=== PATIENT | female | born 1975 | race Caucasian/White ===

== ENCOUNTER → 2021-05-01 14:43 | Outpatient (CLI) | payer OTHER, SELFPAY ==
--- NOTE | ~2021-05-01 | CT_ITS ---
EXAMINATION: CT sinus wo con DATE: 05/01/2021 15:02 INDICATION: Chronic sinusitis. Chronic congestion. TECHNIQUE: Computed tomography (CT) of the paranasal sinuses was performed without contrast. Iterativ e reconstruction technique was employed. Exam dose: 286.20 mGy-cm total exam DLP. COMPARISON: 11/22/2017 CT sinuses FINDINGS: There is minimal rightward bowing of the nasal septum. The nasal turbinates are probably swollen bilaterally. There is intralamellar cell of both middle nikia al turbinates, more prominent on the left. There is soft tissue thickening but no occlusion at the left and right maxillary ostium and infundibu lum. There is an approximately 12 x 14 mm mucus retention cyst or polyp in the posterior inferior left max illary sinus. The paranasal sinuses otherwise are normally developed and aerated. There is very limited development of the left mastoid air cells. Right mastoid air cells are normally developed and aerated. IMPRESSION: Minimal rightward bowing of nasal septum Swelling of the nasal turbinates Interlamellar cell of both middle nasal turbinates, greater on the left Mild soft tissue thickening in the region of the maxillary ostium and infundibulum bilaterally, witho ut occlusion Prominent mucus retention cyst or polyp in the posterolateral inferior left maxillary sinus Reviewed, dictated and finalized at [facility] Reviewed, dictated and finalized at [facility] [employer] [facility] IMPRESSION: Minimal rightward bowing of nasal septum Swelling of the nasal turbinates Interlamellar cell of both middle nasal turbinates, greater on the left Mild soft tissue thickening in the region of the maxillary ostium and infundibu lum bilaterally, without occlusion Prominent mucus retention cyst or polyp in the posterolateral inferior left max illary sinus
== END ==
DX: J32.9 Chronic sinusitis, unspecified (principal); R93.0 Abnormal findings on diagnostic imaging of skull and head, not elsewhere classified
CPT/HCPCS: 70486

== ENCOUNTER 2024-08-19 13:27 | Outpatient (CLI) | payer OTHER, SELFPAY ==
--- NOTE | ~2024-08-19 | MM_ITS ---
EXAMINATION: MM screening lianna BI w ross HISTORY: Screening TECHNIQUE: Craniocaudal and mediolateral oblique 3-D tomosynthesis images were obtained and synthetic 2-D images were generated. CAD analysis was submitted and interpreted. COMPARISON: No prior mammogram is available for comparison at this institution. BREAST PARENCHYMAL COMPOSITION: Not dense: There are scattered areas of fibroglandular density. FINDINGS: There is no mammographic evidence for malignancy in the right breast. There is focal asymme try with architectural distortion centered in the upper central aspect of the left breast, middle thi rd. IMPRESSION: 1. Focal left breast asymmetry with architectural distortion upper central breast, middle third. 2. Additional mammographic views and possible breast ultrasound are recommended. BI-RADS Category 0: Incomplete: Needs additional imaging evaluation. Reviewed, dictated and finalized at location A. IMPRESSION: 1. Focal left breast asymmetry with architectural distortion upper central jess[address] st, middle third. 2. Additional mammographic views and possible breast ultrasound are recommended . BI-RADS Category 0: Incomplete: Needs additional imaging evaluation.
--- OUTSIDE RECORDS SUMMARY | 2024-08-19 13:37 | XMS_ITS | Patient Health Record ---
Author Organization [facility] Address [address] [place] [address] Care Team Providers Care Front Maker Lockstitch Name Role Phone OttoMana hacketthel Unavailable [phone] Denisa Michael Unavailable [phone] Otto Tomás Unavailable [phone] Allergies No Known Allergies Reason For Referral No Information Medications Medication SIG (Take, Route, Frequency, Duration) Notes Start Date End Date Status Restasis 0.05 % INSTILL 1 DROP IN BOTH EYES TWICE DAILY Ophthalmic for 30 Days Active Vitamin D (Ergocalciferol) 1.25 MG (70650 UT) TAKE 1 CAPSULE BY MOUTH ONCE A WEEK Oral for 84 Days Active Synthroid 25 MCG 1 tablet in the morning on an empty stomach Orally Once a day for 30 day(s) 11/27/2023 Active traMADol HCl 100 MG 1 tablet Orally twic e a day for 30 days Needs PA! Thank you! 08/10/2024 Active HYDROcodone-Acetamino phen 5-325 MG 1 tablet Orally at night for 30 days 07/29/2024 Active Gabapentin 300 MG 1 capsule Orally Onc e a day Active Lexapro 5 MG 1 tablet Orally Once a day Active Omeprazole 40 MG Oral for 90 Days Active Qulipta 60 MG Oral for 30 Days Active Ibuprofen 400 MG 1 tablet with food o r milk as needed Orally Three times a day 11/27/2023 Active Aleve 220 MG 1 tablet with food o r milk as needed Orally every 12 hrs 11/27/2023 Active Tylenol 325 MG 1 tablet as needed Orally every 6 hrs 11/27/2023 Active Diclofenac Sodium 50 MG Oral for 14 Days Active Problems Problem Type SNOMED Code ICD Code Onset Dates Problem Status W/U Status Risk Notes Problem Lumbosacral plexus lesion (3703681) Lumbosacral plexus disorders (G54.1) Active confirmed Problem Spinal enthesopathy (75367408) Spinal enthesopathy, lumbar region (M46.06) Active confirmed Problem Lumbar spondylosis (788054876) Lumbar spondylosis (M47.816) Active confirmed Problem Lumbar radiculopathy (576442701) Lumbar radiculopathy (M54.16) Active confirmed Problem Scoliosis (346159094) Lumbar scoliosis (M41.9) Active confirmed Problem Hypothyroidism (05780288) Hypothyroidism (E03.9) Active confirmed Problem 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 Problem Scoliosis (354228444) Scoliosis of thoracolumbar spine (M41.9) Active confirmed Problem Congenital scoliosis (44757888) 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 Problem Gastric reflux (044805499) Gastric reflux (K21.9) Active confirmed Problem Gastroesophageal reflux disease (245439595) Gastric reflux syndrome (K21.9) Active confirmed Problem Vitamin D deficiency (94269748) Vitamin D deficiency (E55.9) Active confirmed Problem Vitamin D deficiency (70317617) Vitamin D3 deficiency (E55.9) Active confirmed Vital Signs Heart Rate 76 /min 07/28/2024 Respiratory Rate 80 /min 12/17/2023 Height-cm 175.26 cm 07/28/2024 Blood pressure diastolic 81 mm Hg 07/28/2024 Weight-kg 88.45 kg 07/28/2024 Height 5ft 9in in 07/28/2024 Blood pressure systolic 126 mm Hg 07/28/2024 Weight 195 lbs 07/28/2024 BMI 28.79 kg/m2 07/28/2024 Encounters Encounter Location Date Provider Diagnosis [facility] [address] [place] [address] [address] [place] [address] 11/27/2023 Olga Menjivar Congenital scoliosis Q67.5 ; 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 ; Shantal-Danlos syndrome Q79.60 ; Hypothyroidism E03.9 ; Gastric reflux K21.9 and Compression fx, lumbar spine S32.000A [facility] [address] [place] [address] [address] [place] [address] 12/17/2023 Olga Menjivar Lumbosacral plexus disorders G54.1 and Lumbar pain M54.50 [facility] [address] [place] [address] [address] [place] [address] 12/24/2023 Olga Otto Lumbar spondylosis M47.816 ; Low back pain M54.50 ; Spinal enthesopathy, lumbar region M46.06 and 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 [facility] [address] [place] [address] [address] [place] [address] 01/06/2024 Olga Menjivar Congenital scoliosis Q67.5 ; Lumbar vertebral fracture S32.009A ; 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 ; Vitamin D deficiency E55.9 ; Hypothyroidism E03.9 and Gastric reflux syndrome K21.9 [facility] [address] [place] [address] [address] [place] [address] 02/10/2024 Olgaminal Menjivar Lumbar radiculopathy M54.16 ; Lumbar spondylosis M47.816 and Kyphoscoliosis M41.9 [facility] [address] [place] [address] [address] [place] [address] 02/13/2024 Olga Otto Lumbar radiculopathy M54.16 [facility] [address] [place] [address] [address] [place] [address] 03/05/2024 Olga Otto Lumbar radiculopathy M54.16 ; Scoliosis of thoracolumbar spine M41.9 ; L2 vertebral fracture S32.029A ; Hypothyroidism E03.9 ; Gastric reflux syndrome K21.9 ; Lumbar spondylosis M47.816 ; Spinal enthesopathy, lumbar region M46.06 ; Lumbosacral plexus disorders G54.1 ; Congenital scoliosis Q67.5 and Vitamin D deficiency E55.9 [facility] [address] [place] [address] [address] [place] [address] 05/05/2024 Olgaminal Menjivar Lumbar spondylosis M47.816 ; Spinal enthesopathy, lumbar region M46.06 ; Lumbosacral plexus disorders G54.1 ; Congenital scoliosis Q67.5 ; Vitamin D deficiency E55.9 ; Hypothyroidism E03.9 ; Gastric reflux syndrome K21.9 ; Lumbar radiculopathy M54.16 ; Scoliosis of thoracolumbar spine M41.9 ; Pain in left lumbar region of back M54.50 ; Fracture of L3 vertebra S32.039A and Vitamin D3 deficiency E55.9 [facility] [address] [place] [address] 05/14/2024 Olga Reynoldsnberg Lumbar spondylosis M47.816 ; Spinal enthesopathy, lumbar region M46.06 ; Lumbosacral plexus disorders G54.1 ; Congenital scoliosis Q67.5 ; Vitamin D deficiency E55.9 ; Hypothyroidism E03.9 ; Gastric reflux syndrome K21.9 ; Lumbar radiculopathy M54.16 ; Scoliosis of thoracolumbar spine M41.9 ; Vitamin D3 deficiency E55.9 and Lumbar scoliosis M41.9 [facility] [address] [place] [address] 05/27/2024 Michael Crawley Lumbar spondylosis M47.816 ; Spinal enthesopathy, lumbar region M46.06 ; Lumbosacral plexus disorders G54.1 ; Congenital scoliosis Q67.5 ; Vitamin D deficiency E55.9 ; Hypothyroidism E03.9 ; Gastric reflux syndrome K21.9 ; Lumbar radiculopathy M54.16 ; Scoliosis of thoracolumbar spine M41.9 ; Vitamin D3 deficiency E55.9 and Lumbar scoliosis M41.9 [facility] [address] [place] [address] 06/17/2024 Michael Crawley Lumbar spondylosis M47.816 ; Spinal enthesopathy, lumbar region M46.06 ; Lumbosacral plexus disorders G54.1 ; Congenital scoliosis Q67.5 ; Vitamin D deficiency E55.9 ; Hypothyroidism E03.9 ; Gastric reflux syndrome K21.9 ; Lumbar radiculopathy M54.16 ; Scoliosis of thoracolumbar spine M41.9 ; Vitamin D3 deficiency E55.9 ; Lumbar scoliosis M41.9 ; Shantal-Danlos syndrome Q79.60 and Gastric reflux K21.9 [facility] [address] [place] [phone] 07/28/2024 Olga Menjivar Lumbar spondylosis M47.816 ; Spinal enthesopathy, lumbar region M46.06 ; Lumbosacral plexus disorders G54.1 ; Congenital scoliosis Q67.5 ; Vitamin D deficiency E55.9 ; Hypothyroidism E03.9 ; Gastric reflux syndrome K21.9 ; Lumbar radiculopathy M54.16 ; Scoliosis of thoracolumbar spine M41.9 ; Vitamin D3 deficiency E55.9 ; Lumbar scoliosis M41.9 ; Shantal-Danlos syndrome Q79.60 ; Gastric reflux K21.9 ; Kyphoscoliosis M41.9 ; Osteopenia M85.80 and Low back pain M54.50 [facility] [address] [place] [address] [address] [place] [address] 07/28/2024 Olga Menjivar [facility] [address] [place] [address] [address] [place] [address] 08/05/2024 Tomás Menjivar [facility] [address] [place] [address] [address] [place] [address] 08/10/2024 Toáms Menjivar [facility] [address] [place] [address] [address] [place] [address] 04/01/2024 Olga Menjivar [facility] [address] [place] [address] [address] [place] [address] 04/03/2024 Olga Menjivar [facility] [address] [place] [address] [address] [place] [address] 04/07/2024 Olga Menjivar [facility] [address] [place] [address] [address] [place] [address] 04/07/2024 Olga Menjivar [facility] [address] [place] [address] [address] [place] [address] 05/18/2024 Olga Menjivar Assessments Encounter Date Diagnosis (ICD Code) Assessment Notes Treatment Notes Treatment Clinical Notes Section Notes 11/27/2023 Congenital scoliosis (ICD-10 - Q67.5) 12/17/2023 Lumbosacral plexus disorders (ICD-10 - G54.1) 12/17/2023 Lumbar pain (ICD-10 - M54.50) 12/24/2023 Lumbar spondylosis (ICD-10 - M47.816) 12/24/2023 Low back pain (ICD-10 - M54.50) 01/06/2024 Congenital scoliosis (ICD-10 - Q67.5) 02/10/2024 Lumbar spondylosis (ICD-10 - M47.816) 02/10/2024 Lumbar radiculopathy (ICD-10 - M54.16) 02/13/2024 Lumbar radiculopathy (ICD-10 - M54.16) 03/05/2024 Lumbar radiculopathy (ICD-10 - M54.16) 05/05/2024 Lumbar spondylosis (ICD-10 - M47.816) 05/14/2024 Lumbar spondylosis (ICD-10 - M47.816) 05/27/2024 Lumbar spondylosis (ICD-10 - M47.816) After discussing the benefit and risk/complication including but not limited bleeding, infection, nerve damage, allergic reaction, spinal fluid leak, paralysis, and of the 2nd left L4/L5 medial branch nerve diagnostic block for evaluating left L5-S1 facet arthropathy /mapping RFA were discussed with the patient who verbalized understanding and agrees to proceed today , the procedure was performed without any events, patient tolerated the procedure . Patient will be followed as scheduled. There is severe pain unresponsive to at least six months of conservative medical management. (e.g., pharmacological therapy, physical therapy, exercise). -The patient has pain that is non-radicular, suggesting facet Joint origin supported by physical exam and radiographic evaluation. -No prior spinal fusion at the vertebral level being treated. -Pain is exacerbated by extension and rotation. -Clinical findings and imaging studies suggest no other obvious cause of the pain (e.g., infection, tumor, fracture) and patient has no contraindications for the procedure. -Patient will continue with active rehabilitation program, home exercise program, or functional sikh program. -Policy guidelines regarding number and frequency of the procedure are obeyed. -This patient is currently having severe, debilitating pain that necessitates urgent treatment. The patient is highly symptomatic (Tier 3a CMS guidelines). Pain symptoms are interfering with dally activity and quality of life. Treatment options are limited. This procedure was performed based on the following criteria: -The procedure Is considered minimally Invasive. -The procedure requires very limited resources to perform, including limited use of any additional PPE. -The procedure will likely prevent this patient from seeking care at the hospital emergency room or other urgent care facility. This procedure is being performed due to medical necessity and to avoid further visits to the hospital or ER. This injection is being performed after evaluation and minimization of the risk involved in order to avoid unnecessary ER visits and hospital stays as well as to minimize escalations of opiate medications. 06/17/2024 Lumbar spondylosis (ICD-10 - M47.816) After discussing the benefit and risk/complication including but not limited bleeding, infection, nerve damage, allergic reaction, spinal fluid leak, paralysis, and of left L4/L5 MBN RFA were discussed with the patient who verbalized understanding and agrees to proceed today , the procedure was performed without any events, patient tolerated the procedure . Patient will be followed as scheduled. -There is severe pain unresponsive to at least six months of conservative medical management. (e.g., pharmacological therapy, physical therapy, exercise). -The patient has pain that is non-radicular, suggesting facet Joint origin supported by physical exam and radiographic evaluation. -No prior spinal fusion at the vertebral level being treated. -Pain is exacerbated by extension and rotation. -Clinical findings and imaging studies suggest no other obvious cause of the pain (e.g., infection, tumor, fracture) and patient has no contraindications for the procedure. -Patient had 2 sets of diagnostic (with local anesthetic only) median branch nerve blocks that provided 80% of pain relief for the durations of the agent used. -Patient will continue with active rehabilitation program, home exercise program, or functional sikh program. -Policy guidelines regarding number and frequency of the procedure are obeyed. This patient is currently having severe, debilitating pain that necessitates urgent treatment. The patient is highly symptomatic (Tier 3a CMS guidelines). Pain symptoms are interfering with dally activity and quality of life. Treatment options are limited. This procedure was performed based on the following criteria: -The procedure Is considered minimally Invasive. -The procedure requires very limited resources to perform, including limited use of any additional PPE. -The procedure will likely prevent this patient from seeking care at the hospital emergency room or other urgent care facility. This procedure is being performed due to medical necessity and to avoid further visits to the hospital or ER. This injection is being performed after evaluation and minimization of the risk involved in order to avoid unnecessary ER visits and hospital stays as well as to minimize escalations of opiate medications. 07/28/2024 Lumbar spondylosis (ICD-10 - M47.816) 06/17/2024 Spinal enthesopathy, lumbar region (ICD-10 - M46.06) After discussing the benefit and risk/complication including but not limited bleeding, infection, nerve damage, allergic reaction, spinal fluid leak, paralysis, and of left L4/L5 MBN RFA were discussed with the patient who verbalized understanding and agrees to proceed today , the procedure was performed without any events, patient tolerated the procedure . Patient will be followed as scheduled. -There is severe pain unresponsive to at least six months of conservative medical management. (e.g., pharmacological therapy, physical therapy, exercise). -The patient has pain that is non-radicular, suggesting facet Joint origin supported by physical exam and radiographic evaluation. -No prior spinal fusion at the vertebral level being treated. -Pain is exacerbated by extension and rotation. -Clinical findings and imaging studies suggest no other obvious cause of the pain (e.g., infection, tumor, fracture) and patient has no contraindications for the procedure. -Patient had 2 sets of diagnostic (with local anesthetic only) median branch nerve blocks that provided 80% of pain relief for the durations of the agent used. -Patient will continue with active rehabilitation program, home exercise program, or functional sikh program. -Policy guidelines regarding number and frequency of the procedure are obeyed. This patient is currently having severe, debilitating pain that necessitates urgent treatment. The patient is highly symptomatic (Tier 3a CMS guidelines). Pain symptoms are interfering with dally activity and quality of life. Treatment options are limited. This procedure was performed based on the following criteria: -The procedure Is considered minimally Invasive. -The procedure requires very limited resources to perform, including limited use of any additional PPE. -The procedure will likely prevent this patient from seeking care at the hospital emergency room or other urgent care facility. This procedure is being performed due to medical necessity and to avoid further visits to the hospital or ER. This injection is being performed after evaluation and minimization of the risk involved in order to avoid unnecessary ER visits and hospital stays as well as to minimize escalations of opiate medications. 07/28/2024 Spinal enthesopathy, lumbar region (ICD-10 - M46.06) 05/27/2024 Spinal enthesopathy, lumbar region (ICD-10 - M46.06) After discussing the benefit and risk/complication including but not limited bleeding, infection, nerve damage, allergic reaction, spinal fluid leak, paralysis, and of the 2nd left L4/L5 medial branch nerve diagnostic block for evaluating left L5-S1 facet arthropathy /mapping RFA were discussed with the patient who verbalized understanding and agrees to proceed today , the procedure was performed without any events, patient tolerated the procedure . Patient will be followed as scheduled. There is severe pain unresponsive to at least six months of conservative medical management. (e.g., pharmacological therapy, physical therapy, exercise). -The patient has pain that is non-radicular, suggesting facet Joint origin supported by physical exam and radiographic evaluation. -No prior spinal fusion at the vertebral level being treated. -Pain is exacerbated by extension and rotation. -Clinical findings and imaging studies suggest no other obvious cause of the pain (e.g., infection, tumor, fracture) and patient has no contraindications for the procedure. -Patient will continue with active rehabilitation program, home exercise program, or functional sikh program. -Policy guidelines regarding number and frequency of the procedure are obeyed. -This patient is currently having severe, debilitating pain that necessitates urgent treatment. The patient is highly symptomatic (Tier 3a CMS guidelines). Pain symptoms are interfering with dally activity and quality of life. Treatment options are limited. This procedure was performed based on the following criteria: -The procedure Is considered minimally Invasive. -The procedure requires very limited resources to perform, including limited use of any additional PPE. -The procedure will likely prevent this patient from seeking care at the hospital emergency room or other urgent care facility. This procedure is being performed due to medical necessity and to avoid further visits to the hospital or ER. This injection is being performed after evaluation and minimization of the risk involved in order to avoid unnecessary ER visits and hospital stays as well as to minimize escalations of opiate medications. 05/14/2024 Spinal enthesopathy, lumbar region (ICD-10 - M46.06) 05/05/2024 Spinal enthesopathy, lumbar region (ICD-10 - M46.06) 03/05/2024 Scoliosis of thoracolumbar spine (ICD-10 - M41.9) 01/06/2024 Lumbar vertebral fracture (ICD-10 - S32.009A) 12/24/2023 Spinal enthesopathy, lumbar region (ICD-10 - M46.06) 11/27/2023 Hypermobility syndrome (ICD-10 - M35.7) 11/27/2023 Shantal-Danlos syndrome (ICD-10 - Q79.60) 12/24/2023 Hypermobility syndrome (ICD-10 - M35.7) 01/06/2024 Hypermobility syndrome (ICD-10 - M35.7) 03/05/2024 L2 vertebral fracture (ICD-10 - S32.029A) 05/05/2024 Lumbosacral plexus disorders (ICD-10 - G54.1) 02/10/2024 Kyphoscoliosis (ICD-10 - M41.9) 05/14/2024 Lumbosacral plexus disorders (ICD-10 - G54.1) 05/27/2024 Lumbosacral plexus disorders (ICD-10 - G54.1) After discussing the benefit and risk/complication including but not limited bleeding, infection, nerve damage, allergic reaction, spinal fluid leak, paralysis, and of the 2nd left L4/L5 medial branch nerve diagnostic block for evaluating left L5-S1 facet arthropathy /mapping RFA were discussed with the patient who verbalized understanding and agrees to proceed today , the procedure was performed without any events, patient tolerated the procedure . Patient will be followed as scheduled. There is severe pain unresponsive to at least six months of conservative medical management. (e.g., pharmacological therapy, physical therapy, exercise). -The patient has pain that is non-radicular, suggesting facet Joint origin supported by physical exam and radiographic evaluation. -No prior spinal fusion at the vertebral level being treated. -Pain is exacerbated by extension and rotation. -Clinical findings and imaging studies suggest no other obvious cause of the pain (e.g., infection, tumor, fracture) and patient has no contraindications for the procedure. -Patient will continue with active rehabilitation program, home exercise program, or functional sikh program. -Policy guidelines regarding number and frequency of the procedure are obeyed. -This patient is currently having severe, debilitating pain that necessitates urgent treatment. The patient is highly symptomatic (Tier 3a CMS guidelines). Pain symptoms are interfering with dally activity and quality of life. Treatment options are limited. This procedure was performed based on the following criteria: -The procedure Is considered minimally Invasive. -The procedure requires very limited resources to perform, including limited use of any additional PPE. -The procedure will likely prevent this patient from seeking care at the hospital emergency room or other urgent care facility. This procedure is being performed due to medical necessity and to avoid further visits to the hospital or ER. This injection is being performed after evaluation and minimization of the risk involved in order to avoid unnecessary ER visits and hospital stays as well as to minimize escalations of opiate medications. 06/17/2024 Lumbosacral plexus disorders (ICD-10 - G54.1) After discussing the benefit and risk/complication including but not limited bleeding, infection, nerve damage, allergic reaction, spinal fluid leak, paralysis, and of left L4/L5 MBN RFA were discussed with the patient who verbalized understanding and agrees to proceed today , the procedure was performed without any events, patient tolerated the procedure . Patient will be followed as scheduled. -There is severe pain unresponsive to at least six months of conservative medical management. (e.g., pharmacological therapy, physical therapy, exercise). -The patient has pain that is non-radicular, suggesting facet Joint origin supported by physical exam and radiographic evaluation. -No prior spinal fusion at the vertebral level being treated. -Pain is exacerbated by extension and rotation. -Clinical findings and imaging studies suggest no other obvious cause of the pain (e.g., infection, tumor, fracture) and patient has no contraindications for the procedure. -Patient had 2 sets of diagnostic (with local anesthetic only) median branch nerve blocks that provided 80% of pain relief for the durations of the agent used. -Patient will continue with active rehabilitation program, home exercise program, or functional sikh program. -Policy guidelines regarding number and frequency of the procedure are obeyed. This patient is currently having severe, debilitating pain that necessitates urgent treatment. The patient is highly symptomatic (Tier 3a CMS guidelines). Pain symptoms are interfering with dally activity and quality of life. Treatment options are limited. This procedure was performed based on the following criteria: -The procedure Is considered minimally Invasive. -The procedure requires very limited resources to perform, including limited use of any additional PPE. -The procedure will likely prevent this patient from seeking care at the hospital emergency room or other urgent care facility. This procedure is being performed due to medical necessity and to avoid further visits to the hospital or ER. This injection is being performed after evaluation and minimization of the risk involved in order to avoid unnecessary ER visits and hospital stays as well as to minimize escalations of opiate medications. 07/28/2024 Lumbosacral plexus disorders (ICD-10 - G54.1) 06/17/2024 Congenital scoliosis (ICD-10 - Q67.5) After discussing the benefit and risk/complication including but not limited bleeding, infection, nerve damage, allergic reaction, spinal fluid leak, paralysis, and of left L4/L5 MBN RFA were discussed with the patient who verbalized understanding and agrees to proceed today , the procedure was performed without any events, patient tolerated the procedure . Patient will be followed as scheduled. -There is severe pain unresponsive to at least six months of conservative medical management. (e.g., pharmacological therapy, physical therapy, exercise). -The patient has pain that is non-radicular, suggesting facet Joint origin supported by physical exam and radiographic evaluation. -No prior spinal fusion at the vertebral level being treated. -Pain is exacerbated by extension and rotation. -Clinical findings and imaging studies suggest no other obvious cause of the pain (e.g., infection, tumor, fracture) and patient has no contraindications for the procedure. -Patient had 2 sets of diagnostic (with local anesthetic only) median branch nerve blocks that provided 80% of pain relief for the durations of the agent used. -Patient will continue with active rehabilitation program, home exercise program, or functional sikh program. -Policy guidelines regarding number and frequency of the procedure are obeyed. This patient is currently having severe, debilitating pain that necessitates urgent treatment. The patient is highly symptomatic (Tier 3a CMS guidelines). Pain symptoms are interfering with dally activity and quality of life. Treatment options are limited. This procedure was performed based on the following criteria: -The procedure Is considered minimally Invasive. -The procedure requires very limited resources to perform, including limited use of any additional PPE. -The procedure will likely prevent this patient from seeking care at the hospital emergency room or other urgent care facility. This procedure is being performed due to medical necessity and to avoid further visits to the hospital or ER. This injection is being performed after evaluation and minimization of the risk involved in order to avoid unnecessary ER visits and hospital stays as well as to minimize escalations of opiate medications. 07/28/2024 Congenital scoliosis (ICD-10 - Q67.5) 05/27/2024 Congenital scoliosis (ICD-10 - Q67.5) After discussing the benefit and risk/complication including but not limited bleeding, infection, nerve damage, allergic reaction, spinal fluid leak, paralysis, and of the 2nd left L4/L5 medial branch nerve diagnostic block for evaluating left L5-S1 facet arthropathy /mapping RFA were discussed with the patient who verbalized understanding and agrees to proceed today , the procedure was performed without any events, patient tolerated the procedure . Patient will be followed as scheduled. There is severe pain unresponsive to at least six months of conservative medical management. (e.g., pharmacological therapy, physical therapy, exercise). -The patient has pain that is non-radicular, suggesting facet Joint origin supported by physical exam and radiographic evaluation. -No prior spinal fusion at the vertebral level being treated. -Pain is exacerbated by extension and rotation. -Clinical findings and imaging studies suggest no other obvious cause of the pain (e.g., infection, tumor, fracture) and patient has no contraindications for the procedure. -Patient will continue with active rehabilitation program, home exercise program, or functional sikh program. -Policy guidelines regarding number and frequency of the procedure are obeyed. -This patient is currently having severe, debilitating pain that necessitates urgent treatment. The patient is highly symptomatic (Tier 3a CMS guidelines). Pain symptoms are interfering with dally activity and quality of life. Treatment options are limited. This procedure was performed based on the following criteria: -The procedure Is considered minimally Invasive. -The procedure requires very limited resources to perform, including limited use of any additional PPE. -The procedure will likely prevent this patient from seeking care at the hospital emergency room or other urgent care facility. This procedure is being performed due to medical necessity and to avoid further visits to the hospital or ER. This injection is being performed after evaluation and minimization of the risk involved in order to avoid unnecessary ER visits and hospital stays as well as to minimize escalations of opiate medications. 05/14/2024 Congenital scoliosis (ICD-10 - Q67.5) 05/05/2024 Congenital scoliosis (ICD-10 - Q67.5) 03/05/2024 Hypothyroidism (ICD-10 - E03.9) 01/06/2024 Vitamin D deficiency (ICD-10 - E55.9) 11/27/2023 Hypothyroidism (ICD-10 - E03.9) 11/27/2023 Gastric reflux (ICD-10 - K21.9) 01/06/2024 Hypothyroidism (ICD-10 - E03.9) 03/05/2024 Gastric reflux syndrome (ICD-10 - K21.9) 05/05/2024 Vitamin D deficiency (ICD-10 - E55.9) 05/27/2024 Vitamin D deficiency (ICD-10 - E55.9) After discussing the benefit and risk/complication including but not limited bleeding, infection, nerve damage, allergic reaction, spinal fluid leak, paralysis, and of the 2nd left L4/L5 medial branch nerve diagnostic block for evaluating left L5-S1 facet arthropathy /mapping RFA were discussed with the patient who verbalized understanding and agrees to proceed today , the procedure was performed without any events, patient tolerated the procedure . Patient will be followed as scheduled. There is severe pain unresponsive to at least six months of conservative medical management. (e.g., pharmacological therapy, physical therapy, exercise). -The patient has pain that is non-radicular, suggesting facet Joint origin supported by physical exam and radiographic evaluation. -No prior spinal fusion at the vertebral level being treated. -Pain is exacerbated by extension and rotation. -Clinical findings and imaging studies suggest no other obvious cause of the pain (e.g., infection, tumor, fracture) and patient has no contraindications for the procedure. -Patient will continue with active rehabilitation program, home exercise program, or functional sikh program. -Policy guidelines regarding number and frequency of the procedure are obeyed. -This patient is currently having severe, debilitating pain that necessitates urgent treatment. The patient is highly symptomatic (Tier 3a CMS guidelines). Pain symptoms are interfering with dally activity and quality of life. Treatment options are limited. This procedure was performed based on the following criteria: -The procedure Is considered minimally Invasive. -The procedure requires very limited resources to perform, including limited use of any additional PPE. -The procedure will likely prevent this patient from seeking care at the hospital emergency room or other urgent care facility. This procedure is being performed due to medical necessity and to avoid further visits to the hospital or ER. This injection is being performed after evaluation and minimization of the risk involved in order to avoid unnecessary ER visits and hospital stays as well as to minimize escalations of opiate medications. 05/14/2024 Vitamin D deficiency (ICD-10 - E55.9) 07/28/2024 Vitamin D deficiency (ICD-10 - E55.9) 06/17/2024 Vitamin D deficiency (ICD-10 - E55.9) After discussing the benefit and risk/complication including but not limited bleeding, infection, nerve damage, allergic reaction, spinal fluid leak, paralysis, and of left L4/L5 MBN RFA were discussed with the patient who verbalized understanding and agrees to proceed today , the procedure was performed without any events, patient tolerated the procedure . Patient will be followed as scheduled. -There is severe pain unresponsive to at least six months of conservative medical management. (e.g., pharmacological therapy, physical therapy, exercise). -The patient has pain that is non-radicular, suggesting facet Joint origin supported by physical exam and radiographic evaluation. -No prior spinal fusion at the vertebral level being treated. -Pain is exacerbated by extension and rotation. -Clinical findings and imaging studies suggest no other obvious cause of the pain (e.g., infection, tumor, fracture) and patient has no contraindications for the procedure. -Patient had 2 sets of diagnostic (with local anesthetic only) median branch nerve blocks that provided 80% of pain relief for the durations of the agent used. -Patient will continue with active rehabilitation program, home exercise program, or functional sikh program. -Policy guidelines regarding number and frequency of the procedure are obeyed. This patient is currently having severe, debilitating pain that necessitates urgent treatment. The patient is highly symptomatic (Tier 3a CMS guidelines). Pain symptoms are interfering with dally activity and quality of life. Treatment options are limited. This procedure was performed based on the following criteria: -The procedure Is considered minimally Invasive. -The procedure requires very limited resources to perform, including limited use of any additional PPE. -The procedure will likely prevent this patient from seeking care at the hospital emergency room or other urgent care facility. This procedure is being performed due to medical necessity and to avoid further visits to the hospital or ER. This injection is being performed after evaluation and minimization of the risk involved in order to avoid unnecessary ER visits and hospital stays as well as to minimize escalations of opiate medications. 06/17/2024 Hypothyroidism (ICD-10 - E03.9) After discussing the benefit and risk/complication including but not limited bleeding, infection, nerve damage, allergic reaction, spinal fluid leak, paralysis, and of left L4/L5 MBN RFA were discussed with the patient who verbalized understanding and agrees to proceed today , the procedure was performed without any events, patient tolerated the procedure . Patient will be followed as scheduled. -There is severe pain unresponsive to at least six months of conservative medical management. (e.g., pharmacological therapy, physical therapy, exercise). -The patient has pain that is non-radicular, suggesting facet Joint origin supported by physical exam and radiographic evaluation. -No prior spinal fusion at the vertebral level being treated. -Pain is exacerbated by extension and rotation. -Clinical findings and imaging studies suggest no other obvious cause of the pain (e.g., infection, tumor, fracture) and patient has no contraindications for the procedure. -Patient had 2 sets of diagnostic (with local anesthetic only) median branch nerve blocks that provided 80% of pain relief for the durations of the agent used. -Patient will continue with active rehabilitation program, home exercise program, or functional sikh program. -Policy guidelines regarding number and frequency of the procedure are obeyed. This patient is currently having severe, debilitating pain that necessitates urgent treatment. The patient is highly symptomatic (Tier 3a CMS guidelines). Pain symptoms are interfering with dally activity and quality of life. Treatment options are limited. This procedure was performed based on the following criteria: -The procedure Is considered minimally Invasive. -The procedure requires very limited resources to perform, including limited use of any additional PPE. -The procedure will likely prevent this patient from seeking care at the hospital emergency room or other urgent care facility. This procedure is being performed due to medical necessity and to avoid further visits to the hospital or ER. This injection is being performed after evaluation and minimization of the risk involved in order to avoid unnecessary ER visits and hospital stays as well as to minimize escalations of opiate medications. 07/28/2024 Hypothyroidism (ICD-10 - E03.9) 05/27/2024 Hypothyroidism (ICD-10 - E03.9) After discussing the benefit and risk/complication including but not limited bleeding, infection, nerve damage, allergic reaction, spinal fluid leak, paralysis, and of the 2nd left L4/L5 medial branch nerve diagnostic block for evaluating left L5-S1 facet arthropathy /mapping RFA were discussed with the patient who verbalized understanding and agrees to proceed today , the procedure was performed without any events, patient tolerated the procedure . Patient will be followed as scheduled. There is severe pain unresponsive to at least six months of conservative medical management. (e.g., pharmacological therapy, physical therapy, exercise). -The patient has pain that is non-radicular, suggesting facet Joint origin supported by physical exam and radiographic evaluation. -No prior spinal fusion at the vertebral level being treated. -Pain is exacerbated by extension and rotation. -Clinical findings and imaging studies suggest no other obvious cause of the pain (e.g., infection, tumor, fracture) and patient has no contraindications for the procedure. -Patient will continue with active rehabilitation program, home exercise program, or functional sikh program. -Policy guidelines regarding number and frequency of the procedure are obeyed. -This patient is currently having severe, debilitating pain that necessitates urgent treatment. The patient is highly symptomatic (Tier 3a CMS guidelines). Pain symptoms are interfering with dally activity and quality of life. Treatment options are limited. This procedure was performed based on the following criteria: -The procedure Is considered minimally Invasive. -The procedure requires very limited resources to perform, including limited use of any additional PPE. -The procedure will likely prevent this patient from seeking care at the hospital emergency room or other urgent care facility. This procedure is being performed due to medical necessity and to avoid further visits to the hospital or ER. This injection is being performed after evaluation and minimization of the risk involved in order to avoid unnecessary ER visits and hospital stays as well as to minimize escalations of opiate medications. 05/05/2024 Hypothyroidism (ICD-10 - E03.9) 05/14/2024 Hypothyroidism (ICD-10 - E03.9) 03/05/2024 Lumbar spondylosis (ICD-10 - M47.816) 01/06/2024 Gastric reflux syndrome (ICD-10 - K21.9) 11/27/2023 Compression fx, lumbar spine (ICD-10 - S32.000A) [place] [id number] 03/05/2024 Spinal enthesopathy, lumbar region (ICD-10 - M46.06) 05/14/2024 Gastric reflux syndrome (ICD-10 - K21.9) 05/05/2024 Gastric reflux syndrome (ICD-10 - K21.9) 05/27/2024 Gastric reflux syndrome (ICD-10 - K21.9) After discussing the benefit and risk/complication including but not limited bleeding, infection, nerve damage, allergic reaction, spinal fluid leak, paralysis, and of the 2nd left L4/L5 medial branch nerve diagnostic block for evaluating left L5-S1 facet arthropathy /mapping RFA were discussed with the patient who verbalized understanding and agrees to proceed today , the procedure was performed without any events, patient tolerated the procedure . Patient will be followed as scheduled. There is severe pain unresponsive to at least six months of conservative medical management. (e.g., pharmacological therapy, physical therapy, exercise). -The patient has pain that is non-radicular, suggesting facet Joint origin supported by physical exam and radiographic evaluation. -No prior spinal fusion at the vertebral level being treated. -Pain is exacerbated by extension and rotation. -Clinical findings and imaging studies suggest no other obvious cause of the pain (e.g., infection, tumor, fracture) and patient has no contraindications for the procedure. -Patient will continue with active rehabilitation program, home exercise program, or functional sikh program. -Policy guidelines regarding number and frequency of the procedure are obeyed. -This patient is currently having severe, debilitating pain that necessitates urgent treatment. The patient is highly symptomatic (Tier 3a CMS guidelines). Pain symptoms are interfering with dally activity and quality of life. Treatment options are limited. This procedure was performed based on the following criteria: -The procedure Is considered minimally Invasive. -The procedure requires very limited resources to perform, including limited use of any additional PPE. -The procedure will likely prevent this patient from seeking care at the hospital emergency room or other urgent care facility. This procedure is being performed due to medical necessity and to avoid further visits to the hospital or ER. This injection is being performed after evaluation and minimization of the risk involved in order to avoid unnecessary ER visits and hospital stays as well as to minimize escalations of opiate medications. 06/17/2024 Gastric reflux syndrome (ICD-10 - K21.9) After discussing the benefit and risk/complication including but not limited bleeding, infection, nerve damage, allergic reaction, spinal fluid leak, paralysis, and of left L4/L5 MBN RFA were discussed with the patient who verbalized understanding and agrees to proceed today , the procedure was performed without any events, patient tolerated the procedure . Patient will be followed as scheduled. -There is severe pain unresponsive to at least six months of conservative medical management. (e.g., pharmacological therapy, physical therapy, exercise). -The patient has pain that is non-radicular, suggesting facet Joint origin supported by physical exam and radiographic evaluation. -No prior spinal fusion at the vertebral level being treated. -Pain is exacerbated by extension and rotation. -Clinical findings and imaging studies suggest no other obvious cause of the pain (e.g., infection, tumor, fracture) and patient has no contraindications for the procedure. -Patient had 2 sets of diagnostic (with local anesthetic only) median branch nerve blocks that provided 80% of pain relief for the durations of the agent used. -Patient will continue with active rehabilitation program, home exercise program, or functional sikh program. -Policy guidelines regarding number and frequency of the procedure are obeyed. This patient is currently having severe, debilitating pain that necessitates urgent treatment. The patient is highly symptomatic (Tier 3a CMS guidelines). Pain symptoms are interfering with dally activity and quality of life. Treatment options are limited. This procedure was performed based on the following criteria: -The procedure Is considered minimally Invasive. -The procedure requires very limited resources to perform, including limited use of any additional PPE. -The procedure will likely prevent this patient from seeking care at the hospital emergency room or other urgent care facility. This procedure is being performed due to medical necessity and to avoid further visits to the hospital or ER. This injection is being performed after evaluation and minimization of the risk involved in order to avoid unnecessary ER visits and hospital stays as well as to minimize escalations of opiate medications. 07/28/2024 Gastric reflux syndrome (ICD-10 - K21.9) 07/28/2024 Lumbar radiculopathy (ICD-10 - M54.16) 06/17/2024 Lumbar radiculopathy (ICD-10 - M54.16) After discussing the benefit and risk/complication including but not limited bleeding, infection, nerve damage, allergic reaction, spinal fluid leak, paralysis, and of left L4/L5 MBN RFA were discussed with the patient who verbalized understanding and agrees to proceed today , the procedure was performed without any events, patient tolerated the procedure . Patient will be followed as scheduled. -There is severe pain unresponsive to at least six months of conservative medical management. (e.g., pharmacological therapy, physical therapy, exercise). -The patient has pain that is non-radicular, suggesting facet Joint origin supported by physical exam and radiographic evaluation. -No prior spinal fusion at the vertebral level being treated. -Pain is exacerbated by extension and rotation. -Clinical findings and imaging studies suggest no other obvious cause of the pain (e.g., infection, tumor, fracture) and patient has no contraindications for the procedure. -Patient had 2 sets of diagnostic (with local anesthetic only) median branch nerve blocks that provided 80% of pain relief for the durations of the agent used. -Patient will continue with active rehabilitation program, home exercise program, or functional sikh program. -Policy guidelines regarding number and frequency of the procedure are obeyed. This patient is currently having severe, debilitating pain that necessitates urgent treatment. The patient is highly symptomatic (Tier 3a CMS guidelines). Pain symptoms are interfering with dally activity and quality of life. Treatment options are limited. This procedure was performed based on the following criteria: -The procedure Is considered minimally Invasive. -The procedure requires very limited resources to perform, including limited use of any additional PPE. -The procedure will likely prevent this patient from seeking care at the hospital emergency room or other urgent care facility. This procedure is being performed due to medical necessity and to avoid further visits to the hospital or ER. This injection is being performed after evaluation and minimization of the risk involved in order to avoid unnecessary ER visits and hospital stays as well as to minimize escalations of opiate medications. 05/27/2024 Lumbar radiculopathy (ICD-10 - M54.16) After discussing the benefit and risk/complication including but not limited bleeding, infection, nerve damage, allergic reaction, spinal fluid leak, paralysis, and of the 2nd left L4/L5 medial branch nerve diagnostic block for evaluating left L5-S1 facet arthropathy /mapping RFA were discussed with the patient who verbalized understanding and agrees to proceed today , the procedure was performed without any events, patient tolerated the procedure . Patient will be followed as scheduled. There is severe pain unresponsive to at least six months of conservative medical management. (e.g., pharmacological therapy, physical therapy, exercise). -The patient has pain that is non-radicular, suggesting facet Joint origin supported by physical exam and radiographic evaluation. -No prior spinal fusion at the vertebral level being treated. -Pain is exacerbated by extension and rotation. -Clinical findings and imaging studies suggest no other obvious cause of the pain (e.g., infection, tumor, fracture) and patient has no contraindications for the procedure. -Patient will continue with active rehabilitation program, home exercise program, or functional sikh program. -Policy guidelines regarding number and frequency of the procedure are obeyed. -This patient is currently having severe, debilitating pain that necessitates urgent treatment. The patient is highly symptomatic (Tier 3a CMS guidelines). Pain symptoms are interfering with dally activity and quality of life. Treatment options are limited. This procedure was performed based on the following criteria: -The procedure Is considered minimally Invasive. -The procedure requires very limited resources to perform, including limited use of any additional PPE. -The procedure will likely prevent this patient from seeking care at the hospital emergency room or other urgent care facility. This procedure is being performed due to medical necessity and to avoid further visits to the hospital or ER. This injection is being performed after evaluation and minimization of the risk involved in order to avoid unnecessary ER visits and hospital stays as well as to minimize escalations of opiate medications. 05/14/2024 Lumbar radiculopathy (ICD-10 - M54.16) 03/05/2024 Lumbosacral plexus disorders (ICD-10 - G54.1) 05/05/2024 Lumbar radiculopathy (ICD-10 - M54.16) 03/05/2024 Congenital scoliosis (ICD-10 - Q67.5) 05/14/2024 Scoliosis of thoracolumbar spine (ICD-10 - M41.9) 05/05/2024 Scoliosis of thoracolumbar spine (ICD-10 - M41.9) 05/27/2024 Scoliosis of thoracolumbar spine (ICD-10 - M41.9) After discussing the benefit and risk/complication including but not limited bleeding, infection, nerve damage, allergic reaction, spinal fluid leak, paralysis, and of the 2nd left L4/L5 medial branch nerve diagnostic block for evaluating left L5-S1 facet arthropathy /mapping RFA were discussed with the patient who verbalized understanding and agrees to proceed today , the procedure was performed without any events, patient tolerated the procedure . Patient will be followed as scheduled. There is severe pain unresponsive to at least six months of conservative medical management. (e.g., pharmacological therapy, physical therapy, exercise). -The patient has pain that is non-radicular, suggesting facet Joint origin supported by physical exam and radiographic evaluation. -No prior spinal fusion at the vertebral level being treated. -Pain is exacerbated by extension and rotation. -Clinical findings and imaging studies suggest no other obvious cause of the pain (e.g., infection, tumor, fracture) and patient has no contraindications for the procedure. -Patient will continue with active rehabilitation program, home exercise program, or functional sikh program. -Policy guidelines regarding number and frequency of the procedure are obeyed. -This patient is currently having severe, debilitating pain that necessitates urgent treatment. The patient is highly symptomatic (Tier 3a CMS guidelines). Pain symptoms are interfering with dally activity and quality of life. Treatment options are limited. This procedure was performed based on the following criteria: -The procedure Is considered minimally Invasive. -The procedure requires very limited resources to perform, including limited use of any additional PPE. -The procedure will likely prevent this patient from seeking care at the hospital emergency room or other urgent care facility. This procedure is being performed due to medical necessity and to avoid further visits to the hospital or ER. This injection is being performed after evaluation and minimization of the risk involved in order to avoid unnecessary ER visits and hospital stays as well as to minimize escalations of opiate medications. 06/17/2024 Scoliosis of thoracolumbar spine (ICD-10 - M41.9) After discussing the benefit and risk/complication including but not limited bleeding, infection, nerve damage, allergic reaction, spinal fluid leak, paralysis, and of left L4/L5 MBN RFA were discussed with the patient who verbalized understanding and agrees to proceed today , the procedure was performed without any events, patient tolerated the procedure . Patient will be followed as scheduled. -There is severe pain unresponsive to at least six months of conservative medical management. (e.g., pharmacological therapy, physical therapy, exercise). -The patient has pain that is non-radicular, suggesting facet Joint origin supported by physical exam and radiographic evaluation. -No prior spinal fusion at the vertebral level being treated. -Pain is exacerbated by extension and rotation. -Clinical findings and imaging studies suggest no other obvious cause of the pain (e.g., infection, tumor, fracture) and patient has no contraindications for the procedure. -Patient had 2 sets of diagnostic (with local anesthetic only) median branch nerve blocks that provided 80% of pain relief for the durations of the agent used. -Patient will continue with active rehabilitation program, home exercise program, or functional sikh program. -Policy guidelines regarding number and frequency of the procedure are obeyed. This patient is currently having severe, debilitating pain that necessitates urgent treatment. The patient is highly symptomatic (Tier 3a CMS guidelines). Pain symptoms are interfering with dally activity and quality of life. Treatment options are limited. This procedure was performed based on the following criteria: -The procedure Is considered minimally Invasive. -The procedure requires very limited resources to perform, including limited use of any additional PPE. -The procedure will likely prevent this patient from seeking care at the hospital emergency room or other urgent care facility. This procedure is being performed due to medical necessity and to avoid further visits to the hospital or ER. This injection is being performed after evaluation and minimization of the risk involved in order to avoid unnecessary ER visits and hospital stays as well as to minimize escalations of opiate medications. 07/28/2024 Scoliosis of thoracolumbar spine (ICD-10 - M41.9) 07/28/2024 Vitamin D3 deficiency (ICD-10 - E55.9) 06/17/2024 Vitamin D3 deficiency (ICD-10 - E55.9) After discussing the benefit and risk/complication including but not limited bleeding, infection, nerve damage, allergic reaction, spinal fluid leak, paralysis, and of left L4/L5 MBN RFA were discussed with the patient who verbalized understanding and agrees to proceed today , the procedure was performed without any events, patient tolerated the procedure . Patient will be followed as scheduled. -There is severe pain unresponsive to at least six months of conservative medical management. (e.g., pharmacological therapy, physical therapy, exercise). -The patient has pain that is non-radicular, suggesting facet Joint origin supported by physical exam and radiographic evaluation. -No prior spinal fusion at the vertebral level being treated. -Pain is exacerbated by extension and rotation. -Clinical findings and imaging studies suggest no other obvious cause of the pain (e.g., infection, tumor, fracture) and patient has no contraindications for the procedure. -Patient had 2 sets of diagnostic (with local anesthetic only) median branch nerve blocks that provided 80% of pain relief for the durations of the agent used. -Patient will continue with active rehabilitation program, home exercise program, or functional sikh program. -Policy guidelines regarding number and frequency of the procedure are obeyed. This patient is currently having severe, debilitating pain that necessitates urgent treatment. The patient is highly symptomatic (Tier 3a CMS guidelines). Pain symptoms are interfering with dally activity and quality of life. Treatment options are limited. This procedure was performed based on the following criteria: -The procedure Is considered minimally Invasive. -The procedure requires very limited resources to perform, including limited use of any additional PPE. -The procedure will likely prevent this patient from seeking care at the hospital emergency room or other urgent care facility. This procedure is being performed due to medical necessity and to avoid further visits to the hospital or ER. This injection is being performed after evaluation and minimization of the risk involved in order to avoid unnecessary ER visits and hospital stays as well as to minimize escalations of opiate medications. 05/14/2024 Vitamin D3 deficiency (ICD-10 - E55.9) 05/27/2024 Vitamin D3 deficiency (ICD-10 - E55.9) After discussing the benefit and risk/complication including but not limited bleeding, infection, nerve damage, allergic reaction, spinal fluid leak, paralysis, and of the 2nd left L4/L5 medial branch nerve diagnostic block for evaluating left L5-S1 facet arthropathy /mapping RFA were discussed with the patient who verbalized understanding and agrees to proceed today , the procedure was performed without any events, patient tolerated the procedure . Patient will be followed as scheduled. There is severe pain unresponsive to at least six months of conservative medical management. (e.g., pharmacological therapy, physical therapy, exercise). -The patient has pain that is non-radicular, suggesting facet Joint origin supported by physical exam and radiographic evaluation. -No prior spinal fusion at the vertebral level being treated. -Pain is exacerbated by extension and rotation. -Clinical findings and imaging studies suggest no other obvious cause of the pain (e.g., infection, tumor, fracture) and patient has no contraindications for the procedure. -Patient will continue with active rehabilitation program, home exercise program, or functional sikh program. -Policy guidelines regarding number and frequency of the procedure are obeyed. -This patient is currently having severe, debilitating pain that necessitates urgent treatment. The patient is highly symptomatic (Tier 3a CMS guidelines). Pain symptoms are interfering with dally activity and quality of life. Treatment options are limited. This procedure was performed based on the following criteria: -The procedure Is considered minimally Invasive. -The procedure requires very limited resources to perform, including limited use of any additional PPE. -The procedure will likely prevent this patient from seeking care at the hospital emergency room or other urgent care facility. This procedure is being performed due to medical necessity and to avoid further visits to the hospital or ER. This injection is being performed after evaluation and minimization of the risk involved in order to avoid unnecessary ER visits and hospital stays as well as to minimize escalations of opiate medications. 05/05/2024 Pain in left lumbar region of back (ICD-10 - M54.50) 03/05/2024 Vitamin D deficiency (ICD-10 - E55.9) 05/05/2024 Fracture of L3 vertebra (ICD-10 - S32.039A) 05/14/2024 Lumbar scoliosis (ICD-10 - M41.9) 06/17/2024 Lumbar scoliosis (ICD-10 - M41.9) After discussing the benefit and risk/complication including but not limited bleeding, infection, nerve damage, allergic reaction, spinal fluid leak, paralysis, and of left L4/L5 MBN RFA were discussed with the patient who verbalized understanding and agrees to proceed today , the procedure was performed without any events, patient tolerated the procedure . Patient will be followed as scheduled. -There is severe pain unresponsive to at least six months of conservative medical management. (e.g., pharmacological therapy, physical therapy, exercise). -The patient has pain that is non-radicular, suggesting facet Joint origin supported by physical exam and radiographic evaluation. -No prior spinal fusion at the vertebral level being treated. -Pain is exacerbated by extension and rotation. -Clinical findings and imaging studies suggest no other obvious cause of the pain (e.g., infection, tumor, fracture) and patient has no contraindications for the procedure. -Patient had 2 sets of diagnostic (with local anesthetic only) median branch nerve blocks that provided 80% of pain relief for the durations of the agent used. -Patient will continue with active rehabilitation program, home exercise program, or functional sikh program. -Policy guidelines regarding number and frequency of the procedure are obeyed. This patient is currently having severe, debilitating pain that necessitates urgent treatment. The patient is highly symptomatic (Tier 3a CMS guidelines). Pain symptoms are interfering with dally activity and quality of life. Treatment options are limited. This procedure was performed based on the following criteria: -The procedure Is considered minimally Invasive. -The procedure requires very limited resources to perform, including limited use of any additional PPE. -The procedure will likely prevent this patient from seeking care at the hospital emergency room or other urgent care facility. This procedure is being performed due to medical necessity and to avoid further visits to the hospital or ER. This injection is being performed after evaluation and minimization of the risk involved in order to avoid unnecessary ER visits and hospital stays as well as to minimize escalations of opiate medications. 05/27/2024 Lumbar scoliosis (ICD-10 - M41.9) After discussing the benefit and risk/complication including but not limited bleeding, infection, nerve damage, allergic reaction, spinal fluid leak, paralysis, and of the 2nd left L4/L5 medial branch nerve diagnostic block for evaluating left L5-S1 facet arthropathy /mapping RFA were discussed with the patient who verbalized understanding and agrees to proceed today , the procedure was performed without any events, patient tolerated the procedure . Patient will be followed as scheduled. There is severe pain unresponsive to at least six months of conservative medical management. (e.g., pharmacological therapy, physical therapy, exercise). -The patient has pain that is non-radicular, suggesting facet Joint origin supported by physical exam and radiographic evaluation. -No prior spinal fusion at the vertebral level being treated. -Pain is exacerbated by extension and rotation. -Clinical findings and imaging studies suggest no other obvious cause of the pain (e.g., infection, tumor, fracture) and patient has no contraindications for the procedure. -Patient will continue with active rehabilitation program, home exercise program, or functional sikh program. -Policy guidelines regarding number and frequency of the procedure are obeyed. -This patient is currently having severe, debilitating pain that necessitates urgent treatment. The patient is highly symptomatic (Tier 3a CMS guidelines). Pain symptoms are interfering with dally activity and quality of life. Treatment options are limited. This procedure was performed based on the following criteria: -The procedure Is considered minimally Invasive. -The procedure requires very limited resources to perform, including limited use of any additional PPE. -The procedure will likely prevent this patient from seeking care at the hospital emergency room or other urgent care facility. This procedure is being performed due to medical necessity and to avoid further visits to the hospital or ER. This injection is being performed after evaluation and minimization of the risk involved in order to avoid unnecessary ER visits and hospital stays as well as to minimize escalations of opiate medications. 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 Patient will be followed as scheduled. -There is severe pain unresponsive to at least six months of conservative medical management. (e.g., pharmacological therapy, physical therapy, exercise). -The patient has pain that is non-radicular, suggesting facet Joint origin supported by physical exam and radiographic evaluation. -No prior spinal fusion at the vertebral level being treated. -Pain is exacerbated by extension and rotation. -Clinical findings and imaging studies suggest no other obvious cause of the pain (e.g., infection, tumor, fracture) and patient has no contraindications for the procedure. -Patient had 2 sets of diagnostic (with local anesthetic only) median branch nerve blocks that provided 80% of pain relief for the durations of the agent used. -Patient will continue with active rehabilitation program, home exercise program, or functional sikh program. -Policy guidelines regarding number and frequency of the procedure are obeyed. This patient is currently having severe, debilitating pain that necessitates urgent treatment. The patient is highly symptomatic (Tier 3a CMS guidelines). Pain symptoms are interfering with dally activity and quality of life. Treatment options are limited. This procedure was performed based on the following criteria: -The procedure Is considered minimally Invasive. -The procedure requires very limited resources to perform, including limited use of any additional PPE. -The procedure will likely prevent this patient from seeking care at the hospital emergency room or other urgent care facility. This procedure is being performed due to medical necessity and to avoid further visits to the hospital or ER. This injection is being performed after evaluation and minimization of the risk involved in order to avoid unnecessary ER visits and hospital stays as well as to minimize escalations of opiate medications. 05/05/2024 Vitamin D3 deficiency (ICD-10 - E55.9) 06/17/2024 Gastric reflux (ICD-10 - K21.9) After discussing the benefit and risk/complication including but not limited bleeding, infection, nerve damage, allergic reaction, spinal fluid leak, paralysis, and of left L4/L5 MBN RFA were discussed with the patient who verbalized understanding and agrees to proceed today , the procedure was performed without any events, patient tolerated the procedure . Patient will be followed as scheduled. -There is severe pain unresponsive to at least six months of conservative medical management. (e.g., pharmacological therapy, physical therapy, exercise). -The patient has pain that is non-radicular, suggesting facet Joint origin supported by physical exam and radiographic evaluation. -No prior spinal fusion at the vertebral level being treated. -Pain is exacerbated by extension and rotation. -Clinical findings and imaging studies suggest no other obvious cause of the pain (e.g., infection, tumor, fracture) and patient has no contraindications for the procedure. -Patient had 2 sets of diagnostic (with local anesthetic only) median branch nerve blocks that provided 80% of pain relief for the durations of the agent used. -Patient will continue with active rehabilitation program, home exercise program, or functional sikh program. -Policy guidelines regarding number and frequency of the procedure are obeyed. This patient is currently having severe, debilitating pain that necessitates urgent treatment. The patient is highly symptomatic (Tier 3a CMS guidelines). Pain symptoms are interfering with dally activity and quality of life. Treatment options are limited. This procedure was performed based on the following criteria: -The procedure Is considered minimally Invasive. -The procedure requires very limited resources to perform, including limited use of any additional PPE. -The procedure will likely prevent this patient from seeking care at the hospital emergency room or other urgent care facility. This procedure is being performed due to medical necessity and to avoid further visits to the hospital or ER. This injection is being performed after evaluation and minimization of the risk involved in order to avoid unnecessary ER visits and hospital stays as well as to minimize escalations of opiate medications. 07/28/2024 Gastric reflux (ICD-10 - K21.9) 07/28/2024 Kyphoscoliosis (ICD-10 - M41.9) 07/28/2024 Osteopenia (ICD-10 - M85.80) 07/28/2024 Low back pain (ICD-10 - M54.50) 12/17/2023 Other Body Mass Index: Care Instructions material was published, Body Mass Index: Care Instructions material was published 12/24/2023 Other Body Mass Index: Care Instructions material was published, High Blood Pressure: Care Instructions material was published 01/06/2024 Other Body Mass Index: Care Instructions material was published 02/10/2024 Other Body Mass Index: Care Instructions material was published 03/05/2024 Other High Blood Pressure: Care Instructions material was published 05/05/2024 Other Body Mass Index: Care Instructions material was published, High Blood Pressure: Care Instructions material was published 05/14/2024 Other Body Mass Index: Care Instructions material was published 05/27/2024 Other Body Mass Index: Care Instructions material was published, High Blood Pressure: Care Instructions material was published After discussing the benefit and risk/complication including but not limited bleeding, infection, nerve damage, allergic reaction, spinal fluid leak, paralysis, and of the 2nd left L4/L5 medial branch nerve diagnostic block for evaluating left L5-S1 facet arthropathy /mapping RFA were discussed with the patient who verbalized understanding and agrees to proceed today , the procedure was performed without any events, patient tolerated the procedure . Patient will be followed as scheduled. There is severe pain unresponsive to at least six months of conservative medical management. (e.g., pharmacological therapy, physical therapy, exercise). -The patient has pain that is non-radicular, suggesting facet Joint origin supported by physical exam and radiographic evaluation. -No prior spinal fusion at the vertebral level being treated. -Pain is exacerbated by extension and rotation. -Clinical findings and imaging studies suggest no other obvious cause of the pain (e.g., infection, tumor, fracture) and patient has no contraindications for the procedure. -Patient will continue with active rehabilitation program, home exercise program, or functional sikh program. -Policy guidelines regarding number and frequency of the procedure are obeyed. -This patient is currently having severe, debilitating pain that necessitates urgent treatment. The patient is highly symptomatic (Tier 3a CMS guidelines). Pain symptoms are interfering with dally activity and quality of life. Treatment options are limited. This procedure was performed based on the following criteria: -The procedure Is considered minimally Invasive. -The procedure requires very limited resources to perform, including limited use of any additional PPE. -The procedure will likely prevent this patient from seeking care at the hospital emergency room or other urgent care facility. This procedure is being performed due to medical necessity and to avoid further visits to the hospital or ER. This injection is being performed after evaluation and minimization of the risk involved in order to avoid unnecessary ER visits and hospital stays as well as to minimize escalations of opiate medications. 06/17/2024 Other Body Mass Index: Care Instructions material was published, High Blood Pressure: Care Instructions material was published After discussing the benefit and risk/complication including but not limited bleeding, infection, nerve damage, allergic reaction, spinal fluid leak, paralysis, and of left L4/L5 MBN RFA were discussed with the patient who verbalized understanding and agrees to proceed today , the procedure was performed without any events, patient tolerated the procedure . Patient will be followed as scheduled. -There is severe pain unresponsive to at least six months of conservative medical management. (e.g., pharmacological therapy, physical therapy, exercise). -The patient has pain that is non-radicular, suggesting facet Joint origin supported by physical exam and radiographic evaluation. -No prior spinal fusion at the vertebral level being treated. -Pain is exacerbated by extension and rotation. -Clinical findings and imaging studies suggest no other obvious cause of the pain (e.g., infection, tumor, fracture) and patient has no contraindications for the procedure. -Patient had 2 sets of diagnostic (with local anesthetic only) median branch nerve blocks that provided 80% of pain relief for the durations of the agent used. -Patient will continue with active rehabilitation program, home exercise program, or functional sikh program. -Policy guidelines regarding number and frequency of the procedure are obeyed. This patient is currently having severe, debilitating pain that necessitates urgent treatment. The patient is highly symptomatic (Tier 3a CMS guidelines). Pain symptoms are interfering with dally activity and quality of life. Treatment options are limited. This procedure was performed based on the following criteria: -The procedure Is considered minimally Invasive. -The procedure requires very limited resources to perform, including limited use of any additional PPE. -The procedure will likely prevent this patient from seeking care at the hospital emergency room or other urgent care facility. This procedure is being performed due to medical necessity and to avoid further visits to the hospital or ER. This injection is being performed after evaluation and minimization of the risk involved in order to avoid unnecessary ER visits and hospital stays as well as to minimize escalations of opiate medications. 07/28/2024 Other Learning About How to Have a Healthy Back material was published Plan Of Treatment Pending Test Test Name Order Date X ray : Spines, lumbar 2 views 4 Insurance Providers Payer Name Payer Address Payer Phone Subscriber Number Group Number Insured Name Patient Relationship to Insured Coverage Start Date Coverage End Date [facility] [address] [place] [address] [id number] Norma Pruett Self - patient is the insured Medications Administered Medication Instructions Date of Administration Dosage Notes Lumb / Sacro Para-Med Branch 1st Level 12/24/2023 LEFT L2,3,4 MBN B Lumb / Sacro Para-Med Branch 1st Level 05/14/2024 LEFT L4,5 MBNB Lumb / Sacro Para-Med Branch 1st Level 05/27/2024 LEFT L4,5 MBNB #2 Lumb / Sacro Para-Med Branch 2nd Level 12/24/2023 LEFT L2,3,4 MBN B Lumb / Sacro Transfor Epidural 1st Level 02/13/2024 LEFT L4-5 TRA NS Lumbar Radiofreq Ablation 1st Level 06/17/2024 LEFT L4,5 MBN B RFA Psoas Injection 12/17/2023 LEFT PSOA S Medical (General) History Surgical History Surgery Date(Month/Year) bilateral partial knee replacement gall bladder removed
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
--- OUTSIDE RECORDS SUMMARY | 2024-08-19 13:37 | XMS_ITS | Clinical Summary ---
Author Organization [facility] Address [address] [place] [address] Care Team Providers Care Safety Physician Name Role Phone Unavailable Primary Care Provider Unavailabl e Encounters Date Type Department Care Team Description 08/13/2024 External Device Data [facility] ABSTRACTION Provider, Abstract 08/12/2024 External Device Data [facility]CTION Provider, Abstract 08/11/2024 External Device Data [facility]STRACTION Provider, Abstract 07/07/2024 External Device Data [facility] ABSTRACTION Provider, Abstract 06/10/2024 External Device Data [facility] ABSTRACTION Provider, Abstract 06/02/2024 External Device Data [facility] ABSTRACTION Provider, Abstract 06/02/2024 External Device Data [facility] ABSTRACTION Provider, Abstract 05/30/2024 External Device Data [facility] ABSTRACTION Provider, Abstract 05/29/2024 External Device Data [facility] ABSTRACTION Provider, Abstract 05/26/2024 External Device Data [facility] ABSTRACTION Provider, Abstract from Last 3 Months Social History Tobacco Use Types Packs/Day Years Used Date Smoking Tobacco: Never Assessed Comments Unknown Sex and Gender Information Value Date Recorded Sex Assigned at Not on file Legal 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 Gender Identity Not on file Sexual Orientation Not on file Plan of Treatment Health Maintenance Due Date Last Done Comments DTAP/TDAP/TD VACCINES (1 - Tdap) 1993 HEPATITIS B VACCINES (1 of 3 - 19+ 3-dose series) 1993 04/02/2019 HPV/Cotest (21-29) 1995 CERVICAL CANCER SCREENING 01/24/2004 HPV/Cotest (30-65) 01/24/2004 PAP SMEAR 01/24/2004 BREAST CANCER SCREENING 2014 FIT-DNA Q 3 years 2019 FIT/FOBT Q 1 year 2019 Flex Sig/CT Colonography Q 5 years 2019 INFLUENZA VACCINE (#1) 2023 ZOSTER VACCINE (1 of 2) 01/24/2024 COLORECTAL SCREENING 07/19/2031 07/18/2021, 07/19/19 Colorectal Cancer Screening 07/19/2031 Insurance [employer]
--- OUTSIDE RECORDS SUMMARY | 2024-08-19 13:37 | XMS_ITS | Clinical Summary ---
Author Organization [facility] Address [address] [place] [address] Care Team Providers Care Windscreen Fitter Name Role Phone Yamileth Cesia DPT Unavailable Nathalie Majano BOWLING BALL FINISHER Primary Care Provider Jane Blair MD Unavailable [phone] Chaz Szymanski MD Unavailable [phone] Misha Ledezma MD Unavailable [phone] Allergies No known active allergies Medications levothyroxine (SYNTHROID) 88 mcg tablet take 1 tablet (88MCG) by oral route every day 0 1 Active levothyroxine (SYNTHROID, LEVOTHROID) 125 mcg tablet 8 Active levonorgestreL (Mirena) IUD Mirena 20 mcg/24 hours (6 yrs) 52 mg intrauterine device Take 1 device by intrauterine route. Active cycloSPORINE (RESTASIS) 0.05 % ophthalmic emulsion 1 drop 2 (two) times a day Active prednisoLONE acetate (PRED FORTE) 1 % ophthalmic suspension 1 drop nightly 2 Active ergocalciferol (VITAMIN D) 50,000 unit capsule Take 1 capsule (50,000 Units total) by mouth once a week 2 Active Ubrelvy 100 mg tablet 1 tablet (100 mg total) 3 Active linaCLOtide (LINZESS) 72 mcg capsuleIndicatio ns:Irritable bowel syndrome with both constipation and diarrhea Take 1 capsule (72 mcg total) by mouth daily 90 capsule 4 Active Additional Information Patient not taking.Reported on 06/20/2023 amitriptyline (ELAVIL) 25 mg tablet Take 1 tablet (25 mg total) by mouth nightly 4 Active rosuvastatin (CRESTOR) 10 mg tablet Take 1 tablet (10 mg total) by mouth daily 90 tablet [address] (VOLTAREN) 50 mg EC tabletIndication s:Osteoarthritis Take 1 tablet (50 mg total) by mouth 2 (two) times a day for 14 days 28 tablet 5 Active omeprazole (PriLOSEC) 40 mg capsuleIndicatio ns:Gastroesophag eal reflux disease with esophagitis without hemorrhage TAKE 1 CAPSULE DAILY 90 capsule 5 Active Active Problems Problem Noted Date Diagnosed Date Sleep disturbance 06/20/2023 Medication overuse headache 11/19/2022 Migraine without aura 11/19/2022 Autoimmune disease 04/03/2022 Overview (04/03/2022): Phreesia 01/24/2022 Contusion of lower back 04/03/2022 Degeneration of lumbar intervertebral disc 04/03 Fear of injections and transfusions 04/03/2022 Late effect of fracture of s pine and trunk without spinal cord lesion 04/03/2022 Low back pain 04/03/2022 Assessment & Plan (06/20/2023 2:55 PM CDT): Discussed patient's scoliosis and compression fracture. Discussed pain management and following up with spinal surgeon. Lumbosacral spondylosis without myelopathy 04/03 Osteoarthritis of knee 04/03/2022 Pathological fracture 04/03/2022 Scoliosis 04/03/2022 Sacroiliitis, not elsewhere classified 3 Lumbar radiculopathy 04/03/2022 Adolescent idiopathic scoliosis of thoracolumbar region 02/07/2022 Dysphagia 06/02/2021 Overview (06/02/2021): Added automatically from request for surgery [id number] Irritable bowel syndrome with constipation 06/13 Assessment & Plan (06/13/2017 1:47 PM CDT): 1. Trial of Linzess 145 mcg daily. Instructed patient to call office in 1 week regarding symptoms. If no significant diarrhea but marginal improvement, consider escalating to 290 mcg daily. Pain of foot 01/28/2017 Gastroesophageal reflux disease without esophagi tis 09/28/2016 Assessment & Plan (06/13/2017 1:46 PM CDT): 1. Continue pantoprazole 20 mg once daily. 2. Mg, B12, BUN, creatinine every 6 months. Assessment & Plan (09/28/2016 9:23 PM CDT): 1. Trial of ranitidine 150 mg daily to b.i.d. Discontinue pantoprazole. Call office if breakthrough symptoms on H2 tejinder monotherapy. 2. B12 every 6 months on H2 tejinder monotherapy; otherwise, Mg, B12, BUN, creatinine if on PPI therapy. Bloating 09/28/2016 Assessment & Plan (09/28/2016 9:25 PM CDT): 1. Suspect functional. Consider dietitian referral for low FODMAP elimination diet. Medication treatment options include antispasmodic or TCA, or alternatively, Linzess if constipation predominant. 2. We will request most recent pelvic ultrasound. Colon cancer screening 09/28/2016 Assessment & Plan (06/13/2017 1:45 PM CDT): 1. Patient will confirm if mother has history of colon polyps. If so, repeat colonoscopy currently; otherwise, screening colonoscopy due 10/2020. Assessment & Plan (09/28/2016 9:26 PM CDT): 1. We will follow up regarding maternal history of colon polyps to determine screening colonoscopy. 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 Encounters Date Type Department Care Team Description 08/14/2024 3:00 PM CDT Office Visit [facility] Pain Management [address] [place] [address] Lucy Hamilton, PhD Other chronic pain (Primary Dx); Generalized anxiety disorder 06/26/2024 1:50 PM CDT Clinical Support [facility] Bone Health [address] [place] [address] [facility] 5th [place] [address] [place] [address] Postmenopausal (Primary Dx); Age-related osteoporosis without current pathological fracture; Osteopenia of multiple sites 06/16/2024 Orders Only [facility] Orthopaedic Surgery [address] [place] [address] [place] [address] [place] [address] Anil Campbell MD 06/15/2024 Telephone [facility] Orthopaedic Surgery [address] [place] [address] [facility] 6th [place] [address] [place] [address] Anil Campbell MD 06/15/2024 Orders Only [facility] Orthopaedic Surgery [address] [place] [address] [place] [address] [place] [address] Anil Campbell MD Age-related osteoporosis without current pathological fracture (Primary Dx) 06/10/2024 7:09 PM CDT - 06/10/2024 11:59 PM CDT Hospital Encounter [facility] [address] [place] [address] Discharge Disposition: Discharge to home or self care 06/10/2024 7:08 PM CDT - 06/10/2024 11:59 PM CDT Hospital Encounter [facility] ([facility]) [address] [place] [address] Discharge Disposition: Discharge to home or self care 06/10/2024 2:30 PM CDT Office Visit [facility] Orthopaedic Surgery [address] [place] [address] [facility] 6th [place] [address] [place] [address] Anil Campbell MD Idiopathic scoliosis in adult patient (Primary Dx); Lumbar radiculopathy 06/10/2024 1:34 PM CDT - 06/10/2024 11:59 PM CDT Hospital Encounter [facility] [address] [place] [address] Idiopathic scoliosis in adult patient Discharge Disposition: Discharge to home or self care from Last 3 Months Immunizations Immunization Administration Dates Next Due Hep B Vaccine 04/02/2019 Influenza, Unspecified 03/25/2023(Deferr ed: Patient Refused),03/25/2022(Deferred: Patient Refused) Surgical History Surgery Date Site/Laterality Comments KNEE ARTHROPLASTY 03/25/2015 - 03/24/2016 Bilateral CHOLECYSTECTOMY COLONOSCOPY UPPER GASTROINTESTINAL ENDOSCOPY MOHS SURGERY [facility] Medical History Medical History Date Comments GERD (gastroesophageal reflux disease) Plantar fasciitis Scoliosis Dry eye Shaniqua's disease IBS (irritable bowel syndrome) Scoliosis Migraines Hiatal hernia Hypercholesteremia Pneumonia Raynaud phenomenon Family History Medical History Relation Name Comments Other Father Colon cancer Maternal Grandfather Stroke Maternal Grandfather Myasthenia gravis Mother Thyroid disease Other 1 Family histo ry of Thyroid disorder; Other Other 2 Celiac disease; Other Other 3 No family histo ry of Colon polyps; Other Other 4 No family histo ry of Crohn's disease; Other Other 5 No family histo ry of Ulcerative colitis; Breast cancer Paternal Grandmother Relation Name Status Comments Father Maternal Grandfather Mother Alive Other 1 Other 2 Other 3 Other 4 Other 5 Paternal Grandfather Paternal Grandmother Social History Tobacco Use Types Packs/Day Years Used Date Smoking Tobacco: Never Smokeless Tobacco: Never Tobacco Cessation:Counseling Given: Not Answered Alcohol Use Standard Drinks/Week Comments Yes 0 (1 standard drink = 0.6 oz pur e alcohol) Socially AUDIT-C Answer Date Recorded Q1: How often do you have a drink containing alc ohol? 2-3 times a week 11/19/2022 Q2: How many drinks containi ng alcohol do you have on a typical day when you are drinking? 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 on file Not on file Not on zeynep e Obstetrics History Last Filed Vital Signs Vital Sign Reading Time Taken Comments Blood Pressure 108/72 04/10/2023 8: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 Pulse 94 04/10/2023 8: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 Temperature 36.2 C (97.2 F) 04/10/2023 8: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 Respiratory Rate 27 07/18/2021 11:40 AM CDT Oxygen Saturation 100% 07/18/2021 11:40 AM CDT Inhaled Oxygen Concentration - - Weight 89.8 kg (198 lb) 06/10/2024 2:24 PM CDT Height 172.7 cm (5' 8) 06/10/2024 2:24 PM CDT Body Mass Index 30.11 06/10/2024 2:24 PM CDT Plan of Treatment Health Maintenance Due Date Last Done Comments Breast Cancer Screening-Mammogram 1975 Cervical Cancer Screening 1975 DTaP/Tdap/Td Vaccine (1 - Tdap) 1985 Regular Well Visit/Exam 18-64 01/24/1992 Covid-19 Vaccine (3 - season) 2023 08/15/2021, 07/25/2021 Zoster Vaccine (1 of 2) 01/24/2024 Depression Screening 06/19/2024 06/20/2023 Colon Cancer Screening-Colonoscopy 07/18/2024 07/18/2021 Influenza Vaccine (Season Ended) 2024 Hepatitis B Screening Completed 04/02/2019 , 12/16/1995, 07/08/1995, Additional history exists Hepatitis C Screening Completed 07/05/2023 Pneumococcal vaccine <65 Aged Out No longer eligible based on patient's age to complete this topic Procedures Procedure Name Priority Date/Time Associated Diagnosis Comments DEXA AXIAL SKELETON BONE DENSITY 1 OR MORE SITES Schedule Routine, Read Routine (OP Routine) 06/26/2024 2:16 PM CDT Age-related osteoporosis without current pathological fracture NEURO MR OUTSIDE REFERENCE Routine 06/10/2024 7:09 PM CDT NEURO MR OUTSIDE REFERENCE Routine 06/10/2024 7:08 PM CDT XR SCOLIOSIS 4 OR 5 VW Schedule Routine, Read Routine (OP Routine) 06/10/2024 1:59 PM CDT Idiopathic scoliosis in adult patient HEPATITIS C ANTIBODY Routine 07/05/2023 8:14 AM CDT Encounter for hepatitis C screening test for low risk patient COLONOSCOPY 07/18/2021 10:47 AM CDT from Last 3 Months or Most Recently Relevant to Health Maintenance Results * DEXA Axial Skeleton Bone Density Multi Site (06/26/2024 2:16 PM CDT) Anatomical Region Laterality Modality Body N/A Radiographic Adwoa ging Narrative 06/28/2024 7:03 PM CDT Patient Name: Jericho Cartwright Date of : 1975 Date of scan: 06/26/2024 Bone mineral density was performed on a [employer] Discovery Densitometer. Based on machine cross-calibration and precision studies the least significant changes of this densitometer is 0.024 g/cm2 at the spine, 0.020 g/cm2 at the total proximal femur, and 0.014g/cm2 at the forearm. HISTORY: This is a 49 y.o. postmenopausal female with a history of thyroid disease and vitamin D deficiency. She reports that she has never smoked. She has never used smokeless tobacco. Currently on treatment with vitamin D and thyroid hormone and current complaint of back pain. INDICATIONS: History of prior vertebral fracture and vitamin D deficiency. FINDINGS: BONE MINERAL DENSITY OF THE LUMBAR SPINE Bone Mineral Density (BMD) of the lumbar spine was measured from L1, L3, and L4 and the average density was calculated to be 0.899 gm/cm2. This corresponds to a T-score (standard deviations from the mean of young adults) of -1.4. When compared to the previous study of 02/08/2022 there has been a -0.091 gm/cm (-9.2%) decrease in bone density that is considered significant. BONE MINERAL DENSITY OF THE PROXIMAL FEMUR Bone Mineral Density (BMD) of the left hip total was found to be 0.758 gm/cm2. This corresponds to a T-score standard deviations from the mean of young adults of -1.5. Femoral neck is 0.589 gm/cm2 with a T-score (standard deviations from the mean of young adults) of -2.3. When compared to the previous study of 02/08/2022 there has been a -0.055 gm/cm (-6.7%) decrease in bone density that is considered significant. BONE MINERAL DENSITY OF THE FOREARM Bone Mineral density (BMD) of the left proximal 1/3 of the radius measures 0.679 gm/cm2. This corresponds to a T-score (standard deviations from the mean of young adults) of -0.3. There is no previous study available for comparison. A forearm bone density study was performed in addition to the routine study due to future spine surgery. SUMMARY: Bone mineral density shows evidence of low bone mass at the lumbar spine and proximal femur and moderately increased fracture risk (Osteopenia). There has been a significant decrease in bone density since previous measurement. L2 excluded from bone mineral density analysis of the lumbar spine due to history of compression deformity. ADDITIONAL COMMENTS: Postmenopausal Women and Men Over 50: Diagnostic criteria: Osteoporosis: BMD at or below -2.5 T-score; Osteopenia (low bone mass): BMD between -1.0 and -2.5 T-score. If the patient has a history of a fragility fracture, a fracture that occurred with trauma equivalent to a fall from a standing position or less, then the diagnosis is osteoporosis regardless of bone density. The history and data sections of the bone mineral density scan were prepared by Sheba Norris) KALA who is accredited by the International Society of Clinical Densitometry. The overall patient assessment and scan interpretation were performed by Paul Bardales M.D. who is certified by the International Society of Clinical Densitometry. [id number] Anil Campbell MD IMG DXA PROCEDURES Final Result * Neuro MR Outside Reference (06/10/2024 7:09 PM CDT) Impressions [facility] - 06/10/2024 7:09 PM CDT These images are for Reference purposes only and have not been reviewed by [facility] Radiology. There will be no report generated by a [facility] Radiologist. Narrative [facility]YSON[facility] - 06/10/2024 7:09 PM CDT EXAMINATION: Images For Reference Purposes Only Anil Campbell MD IM MRI PROCEDURES Final Result Performing Organization Address [facility] de Phone Number [email or web address] * Neuro MR Outside Reference (06/10/2024 7:08 PM CDT) Impressions TEMITOPE_[facility] - 06/10/2024 7:08 PM CDT These images are for Reference purposes only and have not been reviewed by [facility] Radiology. There will be no report generated by a [facility] Radiologist. Narrative GAMAL_GREYSON_[facility] - 06/10/2024 7:08 PM CDT EXAMINATION: Images For Reference Purposes Only Anil Campbell MD [facility] MRI PROCEDURES Final Result Performing Organization Address [facility] de Phone Number [email or web address] * XR Scoliosis 4 or 5 Views (06/10/2024 1:59 PM CDT) Anatomical Region Laterality Modality Spine N/A Computed Radiogr aphy 06/10/2024 2:52 PM CDT Impressions 06/10/2024 3:23 PM CDT 1. Unchanged moderate levorotatory thoracolumbar scoliosis with moderate thoracic dextroscoliosis which improves on supine radiographs. 2. Unchanged mild compression fracture of L2. Dictated by: Ernestina Stanley MD The radiology attending physician has personally reviewed this study, and had reviewed and/or edited this written report and agrees with it. Electronically signed by: Hero Markham D.O. Narrative 06/10/2024 3:23 PM CDT EXAMINATION: XR SCOLIOSIS 4 OR 5 VW HISTORY: Scoliosis FINDINGS: The current study is compared with the prior radiograph dated 11/19/2022. Moderate rotatory lumbar levoscoliosis with moderate thoracic dextroscoliosis which improves on supine radiographs. No pelvic obliquity. No coronal or sagittal imbalance. Unchanged mild L2 compression fracture. Cholecystectomy clips right upper quadrant. Intrauterine device present. Bilateral unicompartmental patellofemoral compartment knee arthroplasties. Procedure Note Hero Markham, DO - 06/10/2024 EXAMINATION: XR SCOLIOSIS 4 OR 5 VW HISTORY: Scoliosis FINDINGS: The current study is compared with the prior radiograph dated 11/19/2022. Moderate rotatory lumbar levoscoliosis with moderate thoracic dextroscoliosis which improves on supine radiographs. No pelvic obliquity. No coronal or sagittal imbalance. Unchanged mild L2 compression fracture. Cholecystectomy clips right upper quadrant. Intrauterine device present. Bilateral unicompartmental patellofemoral compartment knee arthroplasties. IMPRESSION: 1. Unchanged moderate levorotatory thoracolumbar scoliosis with moderate thoracic dextroscoliosis which improves on supine radiographs. 2. Unchanged mild compression fracture of L2. Dictated by: Ernestina Stanley MD The radiology attending physician has personally reviewed this study, and had reviewed and/or edited this written report and agrees with it. Electronically signed by: Hero Markham D.O. Anil Campbell MD IMG XR PROCEDURES Final Result * Hepatitis C antibody Blood (07/05/2023 8:14 AM CDT) Hep C Ab Nonreactive Nonreactive Comment: Interpretive Data Nonreactive: Antibodies to HCV not detected. Does NOT exclude the possibility of recent exposure to HCV. Equivocal: Equivocal for HCV antibodies. Supplemental molecular testing will be automatically performed to determine infection status in accordance with current CDC screening recommendations. Reactive: Positive for HCV antibodies. This may represent current or past HCV infection. Supplemental molecular testing will be automatically performed to determine current infection status in accordance with current CDC screening recommendations. Interpretive data was last revised on 2019. Blood 07/05/2023 8:14 AM CDT 07/05/2023 3:49 PM CDT Nathalie Majano NP LAB MICROBIOLOGY - GENERAL ORDER JACQUELINE Final Result [facility] [address] [facility] Department [place] [address] * COLONOSCOPY (07/18/2021 10:47 AM CDT) Anatomical Region Laterality Modality Other Narrative Procedure Note Jane Blair MD - 07/18/2021 10:47 AM CDT ENDOSCOPY LAB Patient Name: Jericho Cartwright Procedure Date: 07/18/2021 10:47 AM Date of : 1975 Admit Type: Outpatient Age: 46 Gender: Female Attending MD: Jane Blair M.D. Room: [facility] ENDOSCOPY ROOM 03 Note Status: Finalized Procedure: Colonoscopy Indications: Screening for colorectal malignant neoplasm (last colonoscopy was > 10 years ago), Incidental changein bowel habits noted with alternating bowel habits Providers: Jane Blair M.D. Referring MD: Jane Blair M.D. Medicines: Monitored Anesthesia Care Complications: No immediate complications. Estimated Blood Loss: Estimated blood loss was minimal. Procedure: Pre-Anesthesia Assessment: - Prior to the procedure, a History and Physicalwas performed, and patient medications, allergies and sensitivities were reviewed. The patient'stolerance of previous anesthesia was reviewed. The benefits, risks and alternatives of theprocedure and sedation were discussed and informed consentwas obtained. All questions were answered. Please referto the signed informed consent document in the medical record. The scope was passed under direct vision.The [id number] was introduced through the anusand advanced to the terminal ileum, with identificationof the appendiceal orifice and IC valve. Thecolonoscopy was performed without difficulty. The patient tolerated the procedure well. The quality of thebowel preparation was evaluated using the BBPS (BostonBowel Preparation Scale) with scores of: Right Colon = 3, Transverse Colon = 3 and Left Colon = 3 (entiremucosa seen well with no residual staining, smallfragments of stool or opaque liquid). The total BBPS score equals 9. Simethicone was used. The bowelpreparation used was GoLYTELY via split dose instruction. Findings: The perianal and digital rectal examinations were normal. The terminal ileum appeared normal. A 3 mm polyp was found in the cecum. The polyp was carpet-like. The polyp was removed with a cold snare. Resection and retrieval were complete. A 4 mm polyp was found in the transverse colon. The polyp wassessile. The polyp was removed with a cold snare. Resection and retrieval were complete. An 11 mm polyp was found at 10 cm proximal to the anus. The polyp was semi-pedunculated. The polyp was removed with a hot snare. Resectionand retrieval were complete. Normal mucosa was found in the entire colon. Biopsies were taken witha cold forceps for histology. Hemorrhoids were found during retroflexion. The exam was otherwise without abnormality on direct and retroflexion views. Impression: - The examined portion of the ileum was normal. - One 3 mm polyp in the cecum, removed with a cold snare. Resected and retrieved. - One 4 mm polyp in the transverse colon, removedwith a cold snare. Resected and retrieved. - One 11 mm polyp at 10 cm proximal to the anus, removed with a hot snare. Resected and retrieved. - Normal mucosa in the entire examined colon.Biopsied. - Hemorrhoids. - The examination was otherwise normal on directand retroflexion views. Recommendation: - The patient will be observed post-procedure,until all discharge criteria are met. - Await pathology results. - Repeat colonoscopy in 3 years for surveillancebased on pathology results. - Biopsy results are typically available within 7-10 days and you will be contacted with the results. If you have not recieved your results within this timeframe, please call [phone] regarding your results. - Contact Information: During normal business hours - Please call theNurse Coordinator: [phone] After hours, evening, nights, weekends and holidays- Please call the hospital grinding wheel operator at and ask for the GI fellow admissions gate attendant. - . Attending Participation: I personally performed the entire procedure. Electronically Signed By: Jane Blair M.D. Jane Blair M.D. 07/18/2021 11:23:34 AM Number of Addenda: 0 Note Initiated On: 07/18/2021 10:47 AM Jane Blair MD ENDOSCOPY PROCEDURES Fin al Result from Last 3 Months or Most Recently Relevant to Health Maintenance Insurance [facility] [employer] Advance Directives For more information, please contact: [phone] * Full Code (Latest Code Status on File) Date Activated Date Inactivated Comments 07/18/2021 9:28 AM 07/18/2021 4:06 PM Care Teams Windscreen Fitter Relationship Specialty Start Date End Date Nathalie Majano NP [address] [facility] [address] [place] [address] PCP - General Family Medicine 06/20/23 Cesia Carson DPT [address] [place] [address] Physical Therapist Physical Therapy 11/21/22 Jane Blair MD [address] [place] [address] Referring Physician Gastroenterology 06/20/23 Chaz Szymanski MD [address] [place] [address] Referring Physician Endocrinology Diabetes & Metabolism 06/20/23 Misha Ledezma MD [address] [place] [address] Referring Physician Obstetrics and Gynecology 06/20/23 [facility] Nurse Practitioner 06/20/23
--- OUTSIDE RECORDS SUMMARY | 2024-08-19 13:37 | XMS_ITS | Referral Summary ---
Author Organization [facility] Address [address] [place] [address] Care Team Providers Care Petroleum Geology Faculty Member Name Role Phone Cesia Carson DPT Unavailable Nathalie Majano TRANSPORTATION SECURITY SCREENER Primary Care Provider [phone] Jane Blair MD Unavailable [phone] Chaz Szymanski MD Unavailable [phone] Misha Ledezma MD Unavailable [phone] Encounters Date Type Department Care Team Description 08/14/2024 3:00 PM CDT Office Visit [facility] Pain Management [facility] [address] [address] Lucy Hamilton, PhD Other chronic pain (Primary Dx); Generalized anxiety disorder 06/26/2024 1:50 PM CDT Clinical Support [facility] Bone Health [facility] 5th [place] [address] [place] [address] Postmenopausal (Primary Dx); Age-related osteoporosis without current pathological fracture; Osteopenia of multiple sites 06/16/[address] [facility] Orthopaedic Surgery [facility] 6th [place] [address] [place] [address] Anil Campbell MD 06/15/[address] [facility] Orthopaedic Surgery [facility] 6th [place] [address] [place] [address] Anil Campbell MD 06/15/[address] [facility] Orthopaedic Surgery [address] [facility] 6th [place] [address] [place] [address] Anil Campbell MD Age-related osteoporosis without current pathological fracture (Primary Dx) 06/10/2024 7:09 PM CDT - 06/10/2024 11:59 PM CDT Hospital Encounter [facility] [address] [place] [address] Discharge Disposition: Discharge to home or self care 06/10/2024 7:08 PM CDT - 06/10/2024 11:59 PM CDT Hospital Encounter [facility]) [address] [place] [address] Discharge Disposition: Discharge to home or self care 06/10/2024 1:34 PM CDT - 06/10/2024 11:59 PM CDT Hospital Encounter [facility] [address] [place] [address] Idiopathic scoliosis in adult patient Discharge Disposition: Discharge to home or self care 06/10/2024 2:30 PM CDT Office Visit [facility] Orthopaedic Surgery [address] [place] [address] 6th [place] [address] [place] [address] Anil Campbell MD Idiopathic scoliosis in adult patient (Primary Dx); Lumbar radiculopathy from Last 3 Months Allergies No known active allergies Medications levothyroxine [...] (06/02/2021): Added automatically from request for surgery [id number] Irritable bowel syndrome with constipation 06/13 Assessment [...] (06/20/2023 2:55 PM CDT): Following with Endo. 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 Not on file Not on file Not on zeynep e Last Filed Vital Signs Vital Sign Reading Time Taken Comments Blood Pressure 108/72 04/10/2023 8:38 AM EXPORT FREIGHT MANAGER Pulse 94 04/10/2023 8:38 AM EXPORT FREIGHT MANAGER Temperature 36.2 C (97.2 F) 04/10/2023 8:38 AM EXPORT FREIGHT MANAGER Respiratory Rate 27 07/18/2021 11:40 AM CDT Oxygen Saturation 100% 07/18/2021 11:40 AM CDT Inhaled Oxygen Concentration - - Weight 89.8 kg (198 lb) 06/10/2024 2:24 PM CDT Height 172.7 cm (5' 8) 06/10/2024 2:24 PM CDT Body Mass Index 30.11 06/10/2024 2:24 PM CDT Plan of Treatment Not on file Procedures Procedure Name Priority Date/Time Associated Diagnosis [...] Bone mineral density was performed on a HoloDemystData Discovery Densitometer. Based on machine cross-calibration and [...] density scan were prepared by Sheba Norris) CBDT who is accredited by the International Society of Clinical Densitometry. The overall patient assessment and scan interpretation were performed by Paul Bardales M.D. who is certified by the International Society of Clinical Densitometry. [id number] Anil Campbell MD [facility] DXA PROCEDURES Final Result * Neuro MR Outside Reference (06/10/2024 7:09 PM CDT) Impressions RAD_PACS_[facility]J - 06/10/2024 7:09 PM CDT These images are for Reference purposes only and have not been reviewed by [facility] Radiology. There will be no report generated by a [facility] Radiologist. Narrative RAD_PACS_BJ - 06/10/2024 7:09 PM CDT EXAMINATION: Images For Reference Purposes Only Anil Campbell MD [facility] MRI PROCEDURES Final Result Performing Organization Address [facility] Co de Phone Number RAD_PACS_[facility] * Neuro MR Outside Reference (06/10/2024 7:08 PM CDT) Impressions RAD_PACS_JOSÉ - 06/10/2024 7:08 PM CDT These images are for Reference purposes only and have not been reviewed by [facility] Radiology. There will be no report generated by a [facility] Radiologist. Narrative RAD_PACS_BJ - 06/10/2024 7:08 PM CDT EXAMINATION: Images For Reference Purposes Only Anil Campbell MD [facility] MRI PROCEDURES Final Result Performing Organization Address [facility] de Phone Number RAD_PACS_[facility] * XR [...] it. Electronically signed by: Hero Markham D.O. us Anil Campbell MD IMG XR PROCEDURES Final [...] - GENERAL ORDER JACQUELINE Final Result [facility] [place] [address] [address] Department of Laboratories [place] [id number] * COLONOSCOPY (07/18/2021 10:47 AM CDT) Anatomical Region Laterality Modality Other Narrative Procedure Note Jane Blair MD - 07/18/2021 10:47 AM CDT ENDOSCOPY LAB Patient Name: Jericho Cartwright Procedure Date: 07/18/2021 10:47 AM Date of : 1975 Admit Type: Outpatient Age: 46 Gender: Female Attending MD: Jane Blair M.D. Room: [facility] ENDOSCOPY ROOM 03 Note Status: Finalized [...] The scope was passed under direct vision.The [id number] was introduced through the anusand advanced to [...] your results within this timeframe, please call [phone] regarding your results. - Contact Information: During normal business hours - [facility] Coord[facility]: [phone] After hours, evening, nights, weekends and holidays- Please call the hospital centrifuge separator operator at and ask for the GI fellow promotional advertising assistant. - . Attending Participation: I personally performed the entire procedure. Electronically Signed By: Jane Blair M.D. Jane Blair M.D. 07/18/2021 11:23:34 AM Number of Addenda: 0 Note Initiated On: 07/18/2021 10:47 AM Jane Blair MD ENDOSCOPY PROCEDURES Fin al Result from Last 3 Months or Most Recently Relevant to Health Maintenance Insurance [facility] [employer] [employer] Advance Directives For more information, please contact: [phone] * Full Code (Latest Code Status on File) Date Activated Date Inactivated Comments 07/18/2021 9:28 AM 07/18/2021 4:06 PM Care Teams Petroleum Geology Faculty Member Relationship Specialty Start Date End Date Nathalie Majano NP [address] [facility] [address] [place], [place] [id number] PCP - General Family Medicine 06/20/23 Cesia Carson DPT [address] [place] [address] Physical Therapist Physical Therapy 11/21/22 Jane Blair MD [address] [place] [address] Referring Physician Gastroenterology 06/20/23 Chaz Szymanski MD [address] [place] [address] Referring Physician Endocrinology Diabetes & Metabolism 06/20/23 Misha Ledezma MD [address] [place] [address] Referring Physician Obstetrics and Gynecology 06/20/23 [facility] Nurse Practitioner 06/20/23
--- OUTSIDE RECORDS SUMMARY | 2024-08-19 13:38 | XMS_ITS ---
Author Organization [facility] Address [address] [facility] [address] [place] [address] Care Team Providers Care Oil Operator Name Role Phone Viridiana Ruiz MD Primary Care Provider Chaz Hernandez Unavailable [phone] REASON FOR VISIT PA- Teriparatide Encounters Encounter Location Date Provider Diagnosis [facility] [address] [address] 08/11/2024 Chaz Szymanski PLAN OF TREATMENT Next Appt Details Provider Name:Chaz Szymanski, 12/15/2024 11:00:00 AM, [address], [address], Provider Name:Chaz Szymanski, 12/15/2024 11:30:00 AM, [address], [address],
--- OUTSIDE RECORDS SUMMARY | 2024-08-19 13:38 | XMS_ITS | Patient Health Record ---
Author Organization [facility] Address [address] [place] [address] [place] [address] Care Team Providers Care Livestock Inspector Name Role Phone REJI FREGOSO, LEA Primary Care Provider Sheldon Dahl Unavailable [phone] ALLERGIES No Known Allergies REASON FOR REFERRAL No Information MEDICATIONS Medication SIG (Take, Route, Frequency, Duration) Notes Start Date End Date Status Licart 1.3 % 1 patch as needed Externally Once a day 01/02/2022 Active Xanax 0.25 MG 1-2 tablets Orally 3 0 minutes prior to injection Active Pantoprazole Sodium 40 MG 1 tablet Orall y Once a day for 30 day(s) Active Levothyroxine Sodium 125 MCG 1 tablet in the morning on an empty stomach Orally Once a day for 30 day(s) Active Xyzal Allergy 24HR 5 MG 1 tablet in the evening Orally Once a day for 30 day(s) Active SOCIAL HISTORY Sex Assigned At : Social History Observation Description Sex Assigned At Unknown PROBLEMS Problem Type ICD Code Onset Dates Problem Status W/U Status Risk SNOMED Code Notes Problem Fear of injections and transfusions (F40.231) Active confirmed Fear of medical treatment (876535145) Problem Bilateral primary osteoarthritis of knee (M17.0) Active confirmed Osteoarthritis of knee (890792088) Problem Scoliosis, unspecified (M41.9) Active confirmed Scoliosis (008129357) Problem Sacroiliitis, not elsewhere classified (M46.1) Active confirmed Solitary sacroiliitis (052299552) Problem Spondylosis without myelopathy or radiculopathy, lumbar region (M47.816) Active confirmed Lumbosacral spondylosis without myelopathy (38728936) Problem Spondylosis without myelopathy or radiculopathy, lumbosacral region (M47.817) Active confirmed Lumbosacral spondylosis without myelopathy (disorder) (31386890) Problem Other intervertebral disc degeneration, lumbar region (M51.36) Active confirmed Degeneration of lumbar intervertebral disc (77468102) Problem Radiculopathy, lumbar region (M54.16) Active confirmed Lumbar radiculopathy (661520892) Problem Age-related osteoporosis with current pathological fracture, unspecified site, initial encounter for fracture (M80.00XA) Active confirmed Pathological fracture (947850001) Problem Age-related osteoporosis with current pathological fracture, vertebra(e), sequela (M80.08XS) Active confirmed Late effect of fracture of spine AND/OR trunk without spinal cord lesion (5667248) Problem Osseous stenosis of neural canal of lumbar region (M99.33) Active confirmed Spinal stenosis of lumbar region (15390231) Problem Contusion of lower back and pelvis, initial encounter (S30.0XXA) Active confirmed Contusion of lower back (698460561) Problem Low back pain, unspecified (M54.50) Active confirmed Low back pain (934827170) PLAN OF TREATMENT Pending Test Test Name Order Date MRI : Lumbar Spine without contrast (721 48) 12/07/2021 Insurance Providers Payer Name Payer Address Payer Phone Subscriber Number Group Number Insured Name Patient Relationship to Insured Coverage Start Date Coverage End Date [facility] [address] [place] [address] [phone] [id number] JERICHO CARTWRIGHT Self - patient is the insured MEDICAL (GENERAL) HISTORY Medical History History ICD Code Shaniqua's thyroiditis IBS Skin cancer Acid reflux Surgical History Surgery Date(Month/Year) Cholecystectomy Bilateral partial knee replacement 2015
--- OUTSIDE RECORDS SUMMARY | 2024-08-19 13:38 | XMS_ITS ---
Author Organization [facility] Address [address] [facility] [address], [place] [address] Care Team Providers Care Sole Molder Name Role Phone Viridiana Ruiz MD Primary Care Provider UnavailChaz Espinoza Unavailable [phone] REASON FOR VISIT Forteo MEDICATIONS Medication SIG (Take, Route, Fr equency, Duration) Notes Start Date End Date Status Forteo 560 MCG/2.24ML 20 mcg Subcutaneou s Once a Day for 84 days 08/05/2024 Active Encounters Encounter Location Date Provider Diagnosis [facility] [address] [place] [address] 08/05/2024 Chaz Szymanski Osteoporosis with fracture M80.00XA ASSESSMENTS Encounter Date Diagnosis Assessment Notes Treatment Notes Treatment Clinical Notes 08/05/2024 Osteoporosis with fracture (ICD-10 - M80.00XA) PLAN OF TREATMENT Medication Medication Name Sig Start Date Stop Date Notes Forteo 560 MCG/2.24ML 20 mcg Subcutaneou s Once a Day for 84 days 08/05/2024 Next Appt Details Provider Name:Chaz Szymanski, 12/15/2024 11:00:00 AM, [address], [address], Provider Name:Chaz Szymanski, 12/15/2024 11:30:00 AM, [address], [address],
--- OUTSIDE RECORDS SUMMARY | 2024-08-19 13:38 | XMS_ITS ---
Author Organization [facility] Address [address] [facility] [address] [place] [address] Care Team Providers Care Tinware Lithograph Press Operator Name Role Phone Viridiana Ruiz MD Primary Care Provider UnavailChaz Espinoza Unavailable [phone] REASON FOR VISIT PA Teriparatide Encounters Encounter Location Date Provider Diagnosis [facility] [address] [facility] [address] [address] 08/07/2024 Chaz Szymanski PLAN OF TREATMENT Next Appt Details Provider Name:Chaz Szymanski, 12/15/2024 11:00:00 AM, [address], [address], Provider Name:Chaz Szymanski, 12/15/2024 11:30:00 AM, [address], [address],
== END 2024-08-19 13:28 | disposition home or self-care (01) ==
LOC: CHSIMG 13:30
PROVIDERS: Visit Provider Obstetrics & Gynecology
DX: Z12.31 Encounter for screening mammogram for malignant neoplasm of breast (principal); R92.8 Other abnormal and inconclusive findings on diagnostic imaging of breast
CPT/HCPCS: 77063; 77067

== ENCOUNTER 2024-09-03 08:47 | Outpatient (CLI) | payer OTHER, SELFPAY ==
--- NOTE | ~2024-09-03 | MMUS_ITS ---
EXAMINATION: MM diagnostic lianna LT w ross, US breast LT complete HISTORY: Follow-up left breast asymmetry TECHNIQUE: Additional 3-D tomosynthesis images of the left breast were performed and synthetic 2-D im ages were generated. CAD analysis was submitted and interpreted. High resolution complete left breast ultrasound was performed. COMPARISON: 08/19/2024 BREAST PARENCHYMAL COMPOSITION: Not dense: There are scattered areas of fibroglandular density. FINDINGS: MAMMOGRAPHIC FINDINGS: No discrete mass. No suspicious areas of architectural distortion or abnormal clustered calcification s. There is a fat-containing mass in the superior aspect of the left breast, consistent with lipoma. ULTRASOUND: Complete US of all 4 quadrants of the left breast/s and retroareolar region was reviewed. At 11:00, 3 cm from the nipple there is a 5 mm cyst. No suspicious masses to suggest malignancy. IMPRESSION: 1. No evidence for malignancy in the left breast. Benign findings. 2. Routine yearly screening mammogram and regular clinical breast examination are recommended. BI-RADS Category 2: Benign finding(s). Reviewed, dictated and finalized at location [] IMPRESSION: 1. No evidence for malignancy in the left breast. Benign findings. 2. Routine yearly screening mammogram and regular clinical breast examination a re recommended. BI-RADS Category 2: Benign finding(s).
--- OUTSIDE RECORDS SUMMARY | 2024-09-03 09:07 | XMS_ITS | Clinical Summary ---
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
--- OUTSIDE RECORDS SUMMARY | 2024-09-03 09:07 | XMS_ITS ---
Author Organization [facility] Address [address] [facility] [address] [place] [address] Care Team Providers Care Instructor Industrial Design Name Role Phone Viridiana Ruiz MD Primary Care Provider UnavailChaz Espinoza Unavailable [phone] REASON FOR VISIT PA Teriparatide Encounters Encounter Location Date Provider Diagnosis [facility] [address] [facility] [address] [address] 08/07/2024 Chaz Szymanski PLAN OF TREATMENT Next Appt Details Provider Name:Chaz Szymanski, 12/15/2024 11:00:00 AM, [address], [address], Provider Name:Chaz Szymanski, 12/15/2024 11:30:00 AM, [address], [address],
--- OUTSIDE RECORDS SUMMARY | 2024-09-03 09:07 | XMS_ITS | Patient Health Record ---
Author Organization [facility] Address [address] [place] [address] [place] [address] Care Team Providers Care Expeller Operator Name Role Phone REJI FREGOSO, LEA Primary Care Provider Sheldon Dahl Unavailable [phone] ALLERGIES No Known Allergies REASON FOR REFERRAL [...] Once a day for 30 day(s) Active PROBLEMS Problem Type ICD Code Onset Dates Problem Status W/U Status Risk SNOMED Code Notes Problem Fear of injections and transfusions (F40.231) Active confirmed Fear of medical treatment (773742476) Problem Bilateral primary osteoarthritis of knee (M17.0) Active confirmed Osteoarthritis of knee (284513003) Problem Scoliosis, unspecified (M41.9) Active confirmed Scoliosis (179364331) Problem Sacroiliitis, not elsewhere classified (M46.1) Active confirmed Solitary sacroiliitis (044235543) Problem Spondylosis without myelopathy or radiculopathy, lumbar region (M47.816) Active confirmed Lumbosacral spondylosis without myelopathy (66958419) Problem Spondylosis without myelopathy or radiculopathy, lumbosacral region (M47.817) Active confirmed Lumbosacral spondylosis without myelopathy (disorder) (09729033) Problem Other intervertebral disc degeneration, lumbar region (M51.36) Active confirmed Degeneration of lumbar intervertebral disc (70439141) Problem Radiculopathy, lumbar region (M54.16) Active confirmed Lumbar radiculopathy (321385107) Problem Age-related osteoporosis with current pathological fracture, unspecified site, initial encounter for fracture (M80.00XA) Active confirmed Pathological fracture (119879326) Problem Age-related osteoporosis with current pathological fracture, vertebra(e), sequela (M80.08XS) Active confirmed Late effect of fracture of spine AND/OR trunk without spinal cord lesion (2816340) Problem Osseous stenosis of neural canal of lumbar region (M99.33) Active confirmed Spinal stenosis of lumbar region (60689757) Problem Contusion of lower back and pelvis, initial encounter (S30.0XXA) Active confirmed Contusion of lower back (834149055) Problem Low back pain, unspecified (M54.50) Active confirmed Low back pain (802694520) PLAN OF TREATMENT Pending Test Test Name Order Date MRI : Lumbar Spine without contrast (721 48) 12/07/2021 Insurance Providers Payer Name Payer Address Payer Phone Subscriber Number Group Number Insured Name Patient Relationship to Insured Coverage Start Date Coverage End Date [facility] [address] [place] [address] [phone] [id number] JERICHO CARTWRIGHT Self - patient is the insured MEDICAL (GENERAL) HISTORY Medical History History ICD Code Shaniqua's thyroiditis IBS Skin cancer Acid reflux Surgical History Surgery Date(Month/Year) Cholecystectomy Bilateral partial knee replacement 2015
--- OUTSIDE RECORDS SUMMARY | 2024-09-03 09:07 | XMS_ITS | Referral Summary ---
Author Organization [facility] al Address [address] [place] [address] Care Team Providers Care Communications Project Manager Name Role Phone Cesia Carson DPT Unavailable Nathalie Majano NP Primary Care Provider [phone] Jane Blair MD Unavailable [phone] Chaz Szymanski MD Unavailable [phone] Misha Ledezma MD Unavailable [phone] Encounters Date Type Department Care Team Description 08/25/2024 Orders Only [facility] Orthopaedic Surgery [address] [facility] Medicine 6th [place] [address] [place] [address] Anil Campbell MD Idiopathic scoliosis in adult patient (Primary Dx) 08/25/2024 Telephone [facility] Orthopaedic Surgery [address] [facility] Medicine 6th [place] [address] [place] [address] Anil Campbell MD 08/24/2024 Telephone [facility] Gastroenterology [address] [facility] Medicine 12th [place] [address] [place] [id number] Gavi Hsieh RN GI Preprocedure 08/20/2024 Telephone [facility] Gastroenterology [address] [facility] Medicine 12th [place] [address] [place] [id number] Constance Garces LPN 08/14/2024 3:00 PM CDT Office Visit [facility] Pain Management [address] [facility] [address] [place] [address] Lucy Hamilton, PhD Other chronic pain (Primary Dx); Generalized anxiety disorder 06/26/2024 1:50 PM CDT Clinical Support [facility] Bone Health [address] [facility] Advanced Medicine 5th [place] [address] [place] [address] Postmenopausal (Primary Dx); Age-related osteoporosis without current pathological fracture; Osteopenia of multiple sites 06/16/2024 Orders Only [facility] Orthopaedic Surgery [address] [place] [address] Advanced Medicine 6th [place] [address] [place] [address] Anil Campbell MD 06/15/2024 Telephone [facility] Orthopaedic Surgery [address] [place] [address] Advanced Medicine 6th [place] [address] [place] [address] Anil Campbell MD 06/15/2024 Orders Only [facility] Orthopaedic Surgery [address] [place] [address] Advanced [facility] 6th [place] [address] [place] [address] Anil Campbell MD Age-related osteoporosis without current pathological fracture (Primary Dx) 06/10/2024 7:09 PM CDT - 06/10/2024 11:59 PM CDT Hospital Encounter [facility] [address] [place] [address] Discharge Disposition: Discharge to home or self care 06/10/2024 7:08 PM CDT - 06/10/2024 11:59 PM CDT Hospital Encounter [facility] ([facility]) [address] [place] [address] Discharge Disposition: Discharge to home or self care 06/10/2024 1:34 PM CDT - 06/10/2024 11:59 PM CDT Hospital Encounter [facility]) [address] [place] [address] Idiopathic scoliosis in adult patient Discharge Disposition: Discharge to home or self care 06/10/2024 2:30 PM CDT Office Visit [facility] Orthopaedic Surgery [address] [facility] 6th [place] [address] [place] [address] Anil Campbell MD Idiopathic scoliosis in adult patient (Primary Dx); Lumbar radiculopathy from Last 3 Months Allergies No known active allergies Medications levothyroxine (SYNTHROID) 88 mcg tablet take 1 tablet (88MCG) by oral route every day 0 06/29/19 11 Active levothyroxine (SYNTHROID, LEVOTHROID) 125 mcg tablet 09/12/19 18 Active levonorgestreL (Mirena) IUD Mirena 20 mcg/24 hours (6 yrs) 52 mg intrauterine device Take 1 device by intrauterine route. Active cycloSPORINE (RESTASIS) 0.05 % ophthalmic emulsion 1 drop 2 (two) times a day Active prednisoLONE acetate (PRED FORTE) 1 % ophthalmic suspension 1 drop nightly 07/14/19 22 Active ergocalciferol (VITAMIN D) 50,000 unit capsule Take 1 capsule (50,000 Units total) by mouth once a week 03/10/20 22 Active Ubrelvy 100 mg tablet 1 tablet (100 mg total) 11/09/19 23 Active linaCLOtide (LINZESS) 72 mcg capsuleIndicatio ns:Irritable bowel syndrome with both constipation and diarrhea Take 1 capsule (72 mcg total) by mouth daily 90 capsule 04/30/19 24 Active Additional Information Patient not taking.Reported on 06/20/2023 amitriptyline (ELAVIL) 25 mg tablet Take 1 tablet (25 mg total) by mouth nightly 05/22/19 24 Active rosuvastatin (CRESTOR) 10 mg tablet Take 1 tablet (10 mg total) by mouth daily 90 tablet 1 07/08/[address] (VOLTAREN) 50 mg EC tabletIndication s:Osteoarthritis Take 1 tablet (50 mg total) by mouth 2 (two) times a day for 14 days 28 tablet 06/17/19 25 Active omeprazole (PriLOSEC) 40 mg capsuleIndicatio ns:Gastroesophag eal reflux disease with esophagitis without hemorrhage TAKE 1 CAPSULE DAILY 90 capsule 07/14/19 25 Active polyethylene glycol (GoLYTELY) 236-22.74-6.74 -5.86 gram solution Take 4,000 mL by mouth once for 1 dose Please follow the instructions given to you by your [facility] provider's office and not the ones on the label. 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 on file Not on zeynep e Last Filed Vital Signs Vital Sign Reading Time Taken Comments Blood Pressure 108/72 04/10/2023 8:38 AM FLIGHT AGENT Pulse 94 04/10/2023 8:38 AM FLIGHT AGENT Temperature 36.2 C (97.2 F) 04/10/2023 8:38 AM FLIGHT AGENT Respiratory Rate 27 07/18/2021 11:40 AM CDT Oxygen Saturation 100% 07/18/2021 11:40 AM CDT Inhaled Oxygen Concentration - - Weight 89.8 kg (198 lb) 06/10/2024 2:24 PM CDT Height 172.7 cm (5' 8) 06/10/2024 2:24 PM CDT Body Mass Index 30.11 06/10/2024 2:24 PM CDT Plan of Treatment Upcoming Encounters Date Type Department Care Team (Late st Contact Info) Description 10/27/2024 8:00 AM CDT Hospital Encounter [facility] Endoscopy [address] [place] [address] Jane Blair MD [address] [place] [address] 10/27/2024 8:00 AM CDT - 10/27/2024 8:45 AM CDT Surgery [facility] Endoscopy [address] [place] [address] Jane Blair MD [address] [place] [address] COLONOSCOPY Scheduled Procedures Name Priority Associated Diagnoses Date/Ti dc COLONOSCOPY Colon cancer screening 10/27/2024 8:00 AM CDT Procedures Procedure Name Priority Date/Time Associated Diagnosis [...] Bone mineral density was performed on a [employer] Discovery Densitometer. Based on machine cross-calibration and [...] density scan were prepared by Sheba Norris) ÁNGELT who is accredited by the International Society of Clinical Densitometry. The overall patient assessment and scan interpretation were performed by Paul Bardales M.D. who is certified by the International Society of Clinical Densitometry. [id number] Anil Campbell MD [facility] DXA PROCEDURES Final Result * Neuro MR Outside Reference (06/10/2024 7:09 PM CDT) Impressions RAD_PACS_BJ - 06/10/2024 7:09 PM CDT These images are for Reference purposes only and have not been reviewed by [facility]. There will be no report generated by a [facility] Radiologist. Narrative RAD_PACS_BJ - 06/10/2024 7:09 PM CDT EXAMINATION: Images For Reference Purposes Only Anil Campbell MD [facility] MRI PROCEDURES Final Result Performing Organization Address [facility] Co de Phone Number RAD_PACS_[facility]JH * Neuro MR Outside Reference (06/10/2024 7:08 PM CDT) Impressions RAD_PACS_JOSÉ - 06/10/2024 7:08 PM CDT These images are for Reference purposes only and have not been reviewed by [facility]. There will be no report generated by a [facility] Radiologist. Narrative RAD_PACS_BJ - 06/10/2024 7:08 PM CDT EXAMINATION: Images For Reference Purposes Only Anil Campbell MD [facility] MRI PROCEDURES Final Result Performing Organization Address [facility] de Phone Number RAD_PACS_[facility] * XR Scoliosis [...] GENERAL ORDER JACQUELINE Final Result [facility] [place] [address] [address] Department of Laboratories [place] [id number] * COLONOSCOPY (07/18/2021 10:47 AM CDT) Anatomical Region Laterality Modality Other Narrative Procedure Note Jane Blair MD - 07/18/2021 10:47 AM CDT ENDOSCOPY LAB Patient Name: Jericho Cartwright Procedure Date: 07/18/2021 10:47 AM Date of : 1975 Admit Type: Outpatient Age: 46 Gender: Female Attending MD: Jane Blair M.D. Room: [facility] ENDOSCOPY ROOM 03 Note Status: Finalized [...] The scope was passed under direct vision.The [id number] was introduced through the anusand advanced to [...] your results within this timeframe, please call [phone] regarding your results. - Contact Information: During normal business hours - [facility] [place] Coordinator: [phone] After hours, evening, nights, weekends and holidays- Please call the hospital whip operator at and ask for the GI fellow electronic technician. - . Attending Participation: I personally performed the entire procedure. Electronically Signed By: Jane Blair M.D. Jane Blair M.D. 07/18/2021 11:23:34 AM Number of Addenda: 0 Note Initiated On: 07/18/2021 10:47 AM Jane Blair MD ENDOSCOPY PROCEDURES Fin al Result from Last 3 Months or Most Recently Relevant to Health Maintenance Insurance [facility] CHOICE PLUS [facility] HMO/PPO Address: [address] [address] [place] [address] [employer] [facility] [employer] [facility] [employer] Advance Directives For more information, please contact: [phone] * Full Code (Latest Code Status on File) Date Activated Date Inactivated Comments 07/18/2021 9:28 AM 07/18/2021 4:06 PM Care Teams Communications Project Manager Relationship Specialty Start Date End Date Nathalie Majano NP [address] [facility] [address] [place], [place] [id number] PCP - General Family Medicine 06/20/23 Cesia Carson DPT [address] [place] [address] Physical Therapist Physical Therapy 11/21/22 Jane Blair MD [address] [place] [address] Referring Physician Gastroenterology 06/20/23 Chaz Szymanski MD [address] [place] [address] Referring Physician Endocrinology Diabetes & Metabolism 06/20/23 Misha Ledezma MD [address] [place] [address] Referring Physician Obstetrics and Gynecology 06/20/23 [facility] Nurse Practitioner 06/20/23
--- OUTSIDE RECORDS SUMMARY | 2024-09-03 09:07 | XMS_ITS ---
Author Organization [facility] Address [address] [facility] [address] [place] [address] Care Team Providers Care Entry Level Software Developer Name Role Phone Sara FREGOSO, Viridiana Primary Care Provider UnavailChaz Espinoza Unavailable [phone] REASON FOR VISIT Lab Work Encounters Encounter Location Date Provider Diagnosis [facility] [address] [address] 08/25/2024 Chaz Szymanski Shaniqua's thyroiditis E06.3 ASSESSMENTS Encounter Date Diagnosis Assessment Notes Treatment Notes Treatment Clinical Notes Section Notes 08/25/2024 Shaniqua's thyroiditis (ICD-10 - E06.3) PLAN OF TREATMENT Future Test Test Name Order Date Comp Metabolic Panel (14) 08/25/2024 Next Appt Details Provider Name:Chaz Szymanski, 12/15/2024 11:00:00 AM, [address], [address], Provider Name:Chaz Szymanski, 12/15/2024 11:30:00 AM, [address], [address],
--- OUTSIDE RECORDS SUMMARY | 2024-09-03 09:07 | XMS_ITS | Clinical Summary ---
Author Organization [facility] al Address [address] [place] [address] Care Team Providers Care Residential Sales Representative Name Role Phone Cesia Carson DPT Unavailable Nathalie Majano NP Primary Care Provider [phone] Jane Blair MD Unavailable [phone] Chaz Szymanski MD Unavailable [phone] Misha Ledezma MD Unavailable [phone] Allergies No known active allergies Medications levothyroxine [...] the instructions given to you by your [facility] provider's office and not the ones on [...] (06/02/2021): Added automatically from request for surgery [id number] Irritable bowel syndrome with constipation 06/13 Assessment [...] Department Care Team Description 08/25/2024 Orders Only [facility] Orthopaedic Surgery [address] [place] [address] 6th [place] [address] [place] [address] Anil Campbell MD Idiopathic scoliosis in adult patient (Primary Dx) 08/25/2024 Telephone [facility] Orthopaedic Surgery [address] [place] [address] [place] [address] [place] [address] Anil Campbell MD 08/24/2024 Telephone [facility] Gastroenterology [address] [place] [address] [place] [address] [place] [address] Gavi Hsieh RN GI Preprocedure 08/20/2024 Telephone [facility] Gastroenterology [address] [place] [address] [place] [address] [place] [address] Constance Garces LPN 08/14/2024 3:00 PM CDT Office Visit [facility] Pain Management [address] [facility] [address] [place] [address] Lucy Hamilton, PhD Other chronic pain (Primary Dx); Generalized anxiety disorder 06/26/2024 1:50 PM CDT Clinical Support [facility] Bone Health [address] [place] [address] 5th [place] [address] [place] [address] Postmenopausal (Primary Dx); Age-related osteoporosis without current pathological fracture; Osteopenia of multiple sites 06/16/2024 Orders Only [facility] Orthopaedic Surgery [address] [place] [address] [address]th [place] [address] [place] [address] Anil Campbell MD 06/15/2024 Telephone [facility] Orthopaedic Surgery [address] [facility] Advanced Medicine 6th [place] [address] [place] [address] Anil Campbell MD 06/15/2024 Orders Only [facility] Orthopaedic Surgery [address] [facility] Advanced Medicine 6th [place] [address] [place] [address] Anil Campbell MD Age-related osteoporosis without current pathological fracture (Primary Dx) 06/10/2024 7:09 PM CDT - 06/10/2024 11:59 PM CDT Hospital Encounter [facility] [address] [place] [address] Discharge Disposition: Discharge to home or self care 06/10/2024 7:08 PM CDT - 06/10/2024 11:59 PM CDT Hospital Encounter [facility]) [address] [place] [address] Discharge Disposition: Discharge to home or self care 06/10/2024 2:30 PM CDT Office Visit [facility] Orthopaedic Surgery [address] [place] [address] Advanced Medicine 6th [place] [address] [place] [address] Anil Campbell MD Idiopathic scoliosis in adult patient (Primary Dx); Lumbar radiculopathy 06/10/2024 1:34 PM CDT - 06/10/2024 11:59 PM CDT Hospital Encounter [facility]) [address] [place] [address] Idiopathic scoliosis in adult patient Discharge Disposition: [...] on file Legal Sex Female 1:47 AM ROTARY FURNACE OPERATOR Gender Identity Not on file Sexual Orientation Not on file 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 Not on file Not on zeynep e Obstetrics History Last Filed Vital Signs Vital Sign Reading Time Taken Comments Blood Pressure 108/72 04/10/2023 8:38 AM ROTARY FURNACE OPERATOR Pulse 94 04/10/2023 8:38 AM ROTARY FURNACE OPERATOR Temperature 36.2 C (97.2 F) 04/10/2023 8:38 AM ROTARY FURNACE OPERATOR Respiratory Rate 27 07/18/2021 11:40 AM [...] Description 10/27/2024 8:00 AM CDT Hospital Encounter [facility] Endoscopy [address] [address] Jane Blair MD [address] [place] [address] 10/27/2024 8:00 AM CDT - 10/27/2024 8:45 AM CDT Surgery [facility] Endoscopy [address] [address] Jane Blair MD [address] [place] [address] COLONOSCOPY Scheduled Procedures Name Priority Associated Diagnoses Date/Ti me COLONOSCOPY Colon cancer screening 10/27/2024 8:00 AM CDT Health Maintenance Due Date Last Done Comments [...] Bone mineral density was performed on a [employer] Discovery Densitometer. Based on machine cross-calibration and [...] mineral density scan were prepared by Sheba oNrris) KALA who is accredited by the International Society of Clinical Densitometry. The overall patient assessment and scan interpretation were performed by Paul Bardales M.D. who is certified by the International Society of Clinical Densitometry. [id number] Anil Campbell MD IMG DXA PROCEDURES Final Result * Neuro MR Outside Reference (06/10/2024 7:09 PM CDT) Impressions RAD_PACEtta_BJH - 06/10/2024 7:09 PM CDT These images are for Reference purposes only and have not been reviewed by [facility] Radiology. There will be no report generated by a [facility] Radiologist. Narrative RAD_PACS_[facility]JH - 06/10/2024 7:09 PM CDT EXAMINATION: Images For Reference Purposes Only Anil Campbell MD IMG MRI PROCEDURES Final Result Performing Organization Address [facility] de Phone Number RAD_PACS_[facility] * Neuro MR Outside Reference (06/10/2024 7:08 PM CDT) Impressions RAD_GREYSON_BJ - 06/10/2024 7:08 PM CDT These images are for Reference purposes only and have not been reviewed by [facility] Radiology. There will be no report generated by a [facility] Radiologist. Narrative RAD_LEGACY HEALTHEtta_BJ - 06/10/2024 7:08 PM CDT EXAMINATION: Images For Reference Purposes Only Anil Campbell MD [facility] MRI PROCEDURES Final Result Performing Organization Address [facility] de Phone Number RAD_PACS_[facility] * XR [...] 8:14 AM CDT 07/05/2023 3:49 PM CDT us Nathalie Majano POLICE COMMUNICATIONS DISPATCHER LAB MICROBIOLOGY - GENERAL ORDER JACQUELINE Final Result [facility] [address] [facility] Department [place] [address] * COLONOSCOPY (07/18/2021 10:47 AM CDT) Anatomical Region Laterality Modality Other Narrative Procedure Note Jane Blair MD - 07/18/2021 10:47 AM CDT ENDOSCOPY LAB Patient Name: Jericho Cartwright Procedure Date: 07/18/2021 10:47 AM Date of : 1975 Admit Type: Outpatient Age: 46 Gender: Female Attending MD: Jane Blair M.D. Room: [facility] ENDOSCOPY ROOM 03 Note Status: Finalized Procedure: [...] The scope was passed under direct vision.The [id number] was introduced through the anusand advanced to [...] your results within this timeframe, please call [phone] regarding your results. - Contact Information: During normal business hours - Please call theNurse Coordinator: [phone] After hours, evening, nights, weekends and holidays- Please call the hospital driller operator at and ask for the GI fellow director of operations. - . Attending Participation: I personally performed the entire procedure. Electronically Signed By: Jane Blair M.D. Jane Blair M.D. 07/18/2021 11:23:34 AM Number of Addenda: 0 Note Initiated On: 07/18/2021 10:47 AM Jane Blair MD ENDOSCOPY PROCEDURES Fin al Result from Last 3 Months or Most Recently Relevant to Health Maintenance Insurance [facility] CHOICE PLUS [place] [employer] [facility] [employer] [facility] [employer] Advance Directives For more information, please contact: [phone] * Full Code (Latest Code Status on File) Date Activated Date Inactivated Comments 07/18/2021 9:28 AM 07/18/2021 4:06 PM Care Teams Residential Sales Representative Relationship Specialty Start Date End Date Nathalie Majano NP [address] [facility] [address] [place] [address] PCP - General Family Medicine 06/20/23 Cesia Carson DPT [address] [place] [address] Physical Therapist Physical Therapy 11/21/22 Jane Blair MD [address] [place] [address] Referring Physician Gastroenterology 06/20/23 Chaz Szymanski MD [address] [place] [address] Referring Physician Endocrinology Diabetes & Metabolism 06/20/23 Misha Ledezma MD [address] [place] [address] Referring Physician Obstetrics and Gynecology 06/20/23 [facility] Nurse Practitioner 06/20/23
--- OUTSIDE RECORDS SUMMARY | 2024-09-03 09:07 | XMS_ITS ---
Author Organization [facility] Address [address] [facility] [address] [place] [address] Care Team Providers Care Hood Fitter Name Role Phone Viridiana Ruiz MD Primary Care Provider Chaz Hernandez Unavailable [phone] REASON FOR VISIT PA- Teriparatide Encounters Encounter Location Date Provider Diagnosis [facility] [address] [address] 08/11/2024 Chaz Szymanski PLAN OF TREATMENT Next Appt Details Provider Name:Chaz Szymanski, 12/15/2024 11:00:00 AM, [address], [address], Provider Name:Chaz Szymanski, 12/15/2024 11:30:00 AM, [address], [address],
--- OUTSIDE RECORDS SUMMARY | 2024-09-03 09:07 | XMS_ITS | Patient Health Record ---
Author Organization [facility] Address [address] [facility] [address], [place] [address] Care Team Providers Care Stain Applicator Name Role Phone Viridiana Ruiz MD Primary Care Provider Chaz Hernandez Unavailable [phone] ALLERGIES No Known Allergies RESULTS Component Value Reference Range Notes TSH Reviewed date:12/18/2023 04:31:24 PM Interpretation: Performing Lab:[facility] [address] [place] [address], Phone - [phone], Director - [facility] Notes/Report: TSH 2.370 0.450-4.500 uIU/mL T4, Free Reviewed date:12/18/2023 04:31:37 PM Interpretation: Performing Lab:[facility] [address] [place] [address], Phone - [phone], Director - Sheila Notes/Report: T4,Free(Direct) 1.54 0.82-1.77 ng/dL -Ultrasound: Thyroid Reviewed date:12/24/2023 01:08:31 PM Interpretation: Performing Lab: Notes/Report: Comp Metabolic Panel (14) Reviewed date:07/27/2024 05:26:34 PM Interpretation: Performing Lab:[facility] [address] [place] [address], Phone - [phone], Director - [facility] Notes/Report: Glucose 89 70-99 [...] et Reviewed date:07/27/2024 05:27:27 PM Interpretation: Performing Lab:[facility] [place], [address] [place] [address], Phone - [phone], Director - Sheila Notes/Report: WBC 4.3 3.4-10.8 [...] Free Reviewed date:07/27/2024 05:27:00 PM Interpretation: Performing Lab:[address], Phone - [phone], Director [facility] Notes/Report: T4,Free(Direct) 1.61 0.82-1.77 ng/dL Prolactin Reviewed date:07/27/2024 05:27:22 PM Interpretation: Performing Lab:[address], Phone - [phone], Director [facility] Notes/Report: Prolactin 5.5 4.8-33.4 ng/mL PTH, Intact Reviewed date:07/27/2024 05:26:42 PM Interpretation: Performing Lab:[address], Phone - [phone], [facility] Notes/Report: PTH, Intact 58 15-65 pg/mL PTHrP (PTH-Related Peptide) Reviewed date:07/27/2024 05:26:48 PM Interpretation: Performing Lab:[address], Phone - [phone], [facility] Notes/Report: PTHrP (PTH-Related Peptide) <2.0 This test was developed and its performance characteristics determined by Location. It has not been cleared or approved [...] ne Reviewed date:07/27/2024 05:27:46 PM Interpretation: Performing Lab:[address], Phone - [phone], Director - [facility] Notes/Report: Calcium, Urine 16.6 Not Estab. mg/dL Calcium, Urine 24hr 448 0-320 mg/24 hr Creatinine, Urine 68.4 Not Estab. mg/dL Calcium/Creat.Ratio 243 29-442 mg/g creat Protein Elec + Interp, Serum Reviewed date:07/27/2024 05:27:10 PM Interpretation: Performing Lab:[address], [place], Phone - [phone], Director - [facility] Notes/Report: Albumin 3.7 2.9-4.4 g/dL Eqvoz-8-Wwirolae 0.2 0.0-0.4 g/dL Xbiwx-7-Qxlefxhq 1.0 0.4-1.0 g/dL Beta Globulin 1.2 0.7-1.3 g/dL Gamma Globulin 0.8 0.4-1.8 g/dL M-Jorge Not Observed Not Observed g/dL Globulin, Total 3.2 2.2-3.9 g/dL A/G Ratio 1.2 0.7-1.7 Please note: Protein electrophoresis scan will follow via computer, mail, or automatic dispenser mechanic delivery. P E Interpretation, S The SPE pattern appears unremarkable. Evidence of monoclonal protein is not apparent. PDF . TSH Reviewed date:07/27/2024 05:27:16 PM Interpretation: Performing Lab:[place] [id number] [facility], Phone - [phone], Director - [facility] Notes/Report: TSH 0.843 0.450-4.500 uIU/mL Vitamin D, 25-Hydroxy Reviewed date:07/27/2024 05:26:55 PM Interpretation: Performing Lab:[address], Phone - [phone], Director - [facility] Notes/Report: Vitamin D, 25-Hydroxy 37.8 30.0-100.0 ng/mL Vitamin D deficiency has been defined by the [facility] and an Endocrine Society practice guideline as a level of serum 25-OH vitamin D less than 20 ng/mL (1,2). The Endocrine Society went on to further define vitamin D insufficiency as a level between 21 and 29 ng/mL (2). 1. IOM ([facility] [employer] [facility]). 2010. Dietary reference intakes for calcium and D. [place]: The National Academies Press. 2. Evaristo MF, Brad OCONNOR, Shantel SARMIENTO, et al. Evaluation, treatment, and prevention of vitamin D deficiency: an Endocrine Society clinical practice guideline. JCEM. 2010; 96(7):1911-30. Calcitriol (1,25 di-OH Vitam in D) Reviewed date:07/27/2024 05:27:54 PM Interpretation: Performing Lab:[facility] [place], [address] [facility] [place], Phone - [phone], Director - Sheila Notes/Report: Calcitriol(1,25 di-OH Vit D) 72.7 24.8-81.5 pg/mL REASON FOR REFERRAL No Information MEDICATIONS Medication SIG (Take, Route, Frequency, Duration) Notes Start Date End Date Status Forteo 560 MCG/2.24ML 20 mcg Subcutaneou s Once a Day for 84 days 08/05/2024 Active Vitamin D (Ergocalciferol) 1.25 MG (18373 UT) Take 1 capsule by mouth once [...] (K21.9) Active confirmed Gastroesophagea l reflux disease (044042401) Problem Hyperlipidemia (E78.5) Active confirmed Hyperlipidemia (94969256) Problem Shaniqua's thyroiditis (E06.3) Active confirmed Shaniqua (85963681) Problem 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 confirmed Non-toxic multinodular goiter (83093088) Problem Vitamin D deficiency (E55.9) Active confirmed Vitamin D deficiency (08674634) Problem Migraines (G43.909) Active confirmed migraine (disorder) (81917028) Problem Deficiency of other specified B group vitamins (E53.8) Active confirmed Vitamin B deficiency (69874750) Problem Amenorrhea, unspecified (N91.2) Active confirmed Amenorrhea (50512550) Problem Osteoporosis with fracture (M80.00XA) Active confirmed Pathological fracture (952310692) VITAL SIGNS Heart Rate 78 /min 08/05/2024 Blood pressure diastolic 72 mm Hg 08/05/2024 Height 69 in 08/05/2024 Blood pressure systolic 130 mm Hg 08/05/2024 Weight 206.4 lbs 08/05/2024 BMI 30.48 kg/m2 08/05/2024 Encounters Encounter Location Date Provider Diagnosis [facility] [address] [address] 12/17/2023 Chaz Oiknine Shaniqua's thyroiditis E06.3 ; GERD (gastroesophageal reflux disease) K21.9 ; Amenorrhea, unspecified N91.2 ; Vitamin D deficiency E55.9 ; Deficiency of other specified B group vitamins E53.8 ; Hyperlipidemia E78.5 ; Migraines G43.909 and Nontoxic multinodular goiter E04.2 [facility] [address] [address] 08/05/2024 Chaz Oiknine Shaniqua's thyroiditis E06.3 ; GERD (gastroesophageal reflux disease) K21.9 ; Amenorrhea, unspecified N91.2 ; Vitamin D deficiency E55.9 ; Deficiency of other specified B group vitamins E53.8 ; Hyperlipidemia E78.5 ; Migraines G43.909 ; Nontoxic multinodular goiter E04.2 and Osteoporosis with fracture M80.00XA [facility] [address] [address] 12/17/2023 Chaz Oiknine Nontoxic multinodula r goiter E04.2 [facility] [address] [address] 08/05/2024 Chaz Oiknine Osteoporosis with fracture M80.00XA [facility] [address] [address] 08/07/2024 Chaz Oiknine [facility] [address] [address] 08/11/2024 Chaz Oiknine [facility] [address] [address] 10/22/2023 Chazrita Szymanski Shaniqua's thyroiditis E06.3 [facility] [address] [address] 07/02/2024 Chaz Oiknine Shaniqua's thyroiditis E06.3 and Vitamin D deficiency E55.9 [facility] [address] [address] 08/25/2024 Chaz Oiknine Shaniqua's thyroiditis E06.3 ASSESSMENTS Encounter Date Diagnosis Assessment Notes Treatment Notes Treatment Clinical Notes Section Notes 12/17/2023 Shaniqua's thyroiditis (ICD-10 - E06.3) [...] N91.2) 07/02/2024 Shaniqua's thyroiditis (ICD-10 - E06.3) 08/25/2024 Shaniqua's thyroiditis (ICD-10 - E06.3) 12/17/2023 Vitamin [...] 12/17/[address] Chaz krueger dictates using Strong[employer] Speaking software. Latex Spooler variances may occur. Since our last visit [...] 08/05/[address] Chaz krueger dictates using [employer] Speaking software. Latex Spooler variances may occur. Since our last visit [...] the femur. The patient was seen at [facility] for potential lumbar spinal fusion. The patient was told that she needed to be started on therapy for bone loss which I agree with. I have recommended generic Forteo daily for 2 years. The next bone density will be repeated in June 2026. I will repeat a calcium level 2 weeks after Forteo is initiated. We discussed calcium-containin g foods. She will otherwise continue all of her medications and she will follow up with other providers as indicated. I will see the patient again in November 2024 for follow-up PLAN OF TREATMENT Future Test Test Name Order Date Comp Metabolic Panel (14) 08/25/2024 -Ultrasound: Thyroid 12/16/2024 Next Appt Details Provider Name:Chaz Szymanski, 12/15/2024 11:00:00 AM, [address] [facility] [address], [address], Provider Name:Chaz Szymanski, 12/15/2024 11:30:00 AM, [address] [facility] [address], [place], [address], Insurance Providers Payer Name Payer Address Payer Phone Subscriber Number Group Number Insured Name Patient Relationship to Insured Coverage Start Date Coverage End Date [employer] [facility] [address] [place] [address] [phone] [id number] Norma Pruett Self - patient is the insured MEDICAL (GENERAL) HISTORY Medical History History ICD Code Shaniqua's (Thyroiditis-Lymphocytic, Ch ronic) 2007 hiatal hernia GERD vitamin D DEF VITAMIN b12 def L2 COMPRESSION FRACTURE 09/2021 Surgical History Surgery Date(Month/Year) cholecystectomy dilatation and curettage left partial knee replacement 04/2015 right knee replacement 11/2015
--- OUTSIDE RECORDS SUMMARY | 2024-09-03 09:07 | XMS_ITS | Patient Health Record ---
Author Organization [facility] Address [address] [place] [address] Care Team Providers Care Sustainability Officer Name Role Phone OttoMana hacketthel Unavailable [phone] Denisa Michael Unavailable [phone] Otto Tomás Unavailable [phone] Allergies No Known Allergies Reason For Referral No Information Medications Medication SIG (Take, Route, Frequency, Duration) Notes Start Date End Date Status Restasis 0.05 % INSTILL 1 DROP IN BOTH EYES TWICE DAILY Ophthalmic for 30 Days Active Vitamin D (Ergocalciferol) 1.25 MG (02504 UT) TAKE 1 CAPSULE BY MOUTH ONCE [...] Status Risk Notes Problem Lumbosacral plexus lesion (6614690) Lumbosacral plexus disorders (G54.1) Active confirmed Problem Spinal enthesopathy (07361922) Spinal enthesopathy, lumbar region (M46.06) Active confirmed Problem Lumbar spondylosis (878874316) Lumbar spondylosis (M47.816) Active confirmed Problem Lumbar radiculopathy (551402893) Lumbar radiculopathy (M54.16) Active confirmed Problem Scoliosis (615034036) Lumbar scoliosis (M41.9) Active confirmed Problem Hypothyroidism (21103365) Hypothyroidism (E03.9) Active confirmed 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 Problem Scoliosis (270023245) Scoliosis of thoracolumbar spine (M41.9) Active confirmed Problem Congenital scoliosis (66566692) 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 Problem Gastric reflux (072997716) Gastric reflux (K21.9) Active confirmed Problem Gastroesophageal reflux disease (454824944) Gastric reflux syndrome (K21.9) Active confirmed Problem Vitamin D deficiency (18724589) Vitamin D deficiency (E55.9) Active confirmed Problem Vitamin D deficiency (71466731) Vitamin D3 deficiency (E55.9) Active confirmed Vital Signs Heart Rate 76 /min 07/28/2024 Respiratory Rate 80 /min 12/17/2023 Height-cm 175.26 cm 07/28/2024 Blood pressure diastolic 81 mm Hg 07/28/2024 Weight-kg 88.45 kg 07/28/2024 Height 5ft 9in in 07/28/2024 Blood pressure systolic 126 mm Hg 07/28/2024 Weight 195 lbs 07/28/2024 BMI 28.79 kg/m2 07/28/2024 Encounters Encounter Location Date Provider Diagnosis [facility] [address] [place] [address] [address] [place] [address] 11/27/2023 Olga Menjivar Congenital scoliosis Q67.5 ; 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 ; Shantal-Danlos syndrome Q79.60 ; Hypothyroidism E03.9 ; Gastric reflux K21.9 and Compression fx, lumbar spine S32.000A [facility] [address] [place] [address] [address] [place] [address] 12/17/2023 Olga Menjivar Lumbosacral plexus disorders G54.1 and Lumbar pain M54.50 [facility] [address] [place] [address] [address] [place] [address] 12/24/2023 Olga Otto Lumbar spondylosis M47.816 ; Low back pain M54.50 ; Spinal enthesopathy, lumbar region M46.06 and 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 [facility] [address] [place] [address] [address] [place] [address] 01/06/2024 Olga Menjivar Congenital scoliosis Q67.5 ; Lumbar vertebral fracture S32.009A ; 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 ; Vitamin D deficiency E55.9 ; Hypothyroidism E03.9 and Gastric reflux syndrome K21.9 [facility] [address] [place] [address] [address] [place] [address] 02/10/2024 Olgaminal Menjivar Lumbar radiculopathy M54.16 ; Lumbar spondylosis M47.816 and Kyphoscoliosis M41.9 [facility] [address] [place] [address] [address] [place] [address] 02/13/2024 Olga Otto Lumbar radiculopathy M54.16 [facility] [address] [place] [address] [address] [place] [address] 03/05/2024 Olga Otto Lumbar radiculopathy M54.16 ; Scoliosis of thoracolumbar spine M41.9 ; L2 vertebral fracture S32.029A ; Hypothyroidism E03.9 ; Gastric reflux syndrome K21.9 ; Lumbar spondylosis M47.816 ; Spinal enthesopathy, lumbar region M46.06 ; Lumbosacral plexus disorders G54.1 ; Congenital scoliosis Q67.5 and Vitamin D deficiency E55.9 [facility] [address] [place] [address] [address] [place] [address] 05/05/2024 Olgaminal Menjivar Lumbar spondylosis M47.816 ; [...] vertebra S32.039A and Vitamin D3 deficiency E55.9 [facility] [address] [place] [address] 05/14/2024 Olga Reynoldsnberg Lumbar spondylosis M47.816 ; Spinal enthesopathy, lumbar region M46.06 ; Lumbosacral plexus disorders G54.1 ; Congenital scoliosis Q67.5 ; Vitamin D deficiency E55.9 ; Hypothyroidism E03.9 ; Gastric reflux syndrome K21.9 ; Lumbar radiculopathy M54.16 ; Scoliosis of thoracolumbar spine M41.9 ; Vitamin D3 deficiency E55.9 and Lumbar scoliosis M41.9 [facility] [address] [place] [address] 05/27/2024 Michael Crawley Lumbar spondylosis M47.816 ; Spinal enthesopathy, lumbar region M46.06 ; Lumbosacral plexus disorders G54.1 ; Congenital scoliosis Q67.5 ; Vitamin D deficiency E55.9 ; Hypothyroidism E03.9 ; Gastric reflux syndrome K21.9 ; Lumbar radiculopathy M54.16 ; Scoliosis of thoracolumbar spine M41.9 ; Vitamin D3 deficiency E55.9 and Lumbar scoliosis M41.9 [facility] [address] [place] [address] 06/17/2024 Michael Crawley Lumbar spondylosis M47.816 ; Spinal enthesopathy, lumbar region M46.06 ; Lumbosacral plexus disorders G54.1 ; Congenital scoliosis Q67.5 ; Vitamin D deficiency E55.9 ; Hypothyroidism E03.9 ; Gastric reflux syndrome K21.9 ; Lumbar radiculopathy M54.16 ; Scoliosis of thoracolumbar spine M41.9 ; Vitamin D3 deficiency E55.9 ; Lumbar scoliosis M41.9 ; Shantal-Danlos syndrome Q79.60 and Gastric reflux K21.9 [facility] [address] [place] [address] 07/28/2024 Olga Menjivar Lumbar spondylosis M47.816 ; [...] Osteopenia M85.80 and Low back pain M54.50 [facility] [address] [place] [address] [address] [place] [address] 07/28/2024 Olga Menjivar [facility] [address] [place] [address] [address] [place] [address] 08/05/2024 Tomás Menjivar [facility] [address] [place] [address] [address] [place] [address] 08/10/2024 Tomás Menjivar [facility] [address] [place] [address] [address] [place] [address] 04/01/2024 Olga Menjivar [facility] [address] [place] [address] [address] [place] [address] 04/03/2024 Olga Menjivar [facility] [address] [place] [address] [address] [place] [address] 04/07/2024 Olga Menjivar [facility] [address] [place] [address] [address] [place] [address] 04/07/2024 Olga Menjivar [facility] [address] [place] [address] [address] [place] [address] 05/18/2024 Olga Menjivar Assessments Encounter Date Diagnosis [...] rehabilitation program, home exercise program, or functional rastafari program. -Policy guidelines regarding number and frequency [...] rehabilitation program, home exercise program, or functional rastafari program. -Policy guidelines regarding number and frequency [...] rehabilitation program, home exercise program, or functional rastafari program. -Policy guidelines regarding number and frequency [...] rehabilitation program, home exercise program, or functional rastafari program. -Policy guidelines regarding number and frequency [...] rehabilitation program, home exercise program, or functional rastafari program. -Policy guidelines regarding number and frequency [...] rehabilitation program, home exercise program, or functional rastafari program. -Policy guidelines regarding number and frequency [...] rehabilitation program, home exercise program, or functional rastafari program. -Policy guidelines regarding number and frequency [...] rehabilitation program, home exercise program, or functional rastafari program. -Policy guidelines regarding number and frequency [...] rehabilitation program, home exercise program, or functional rastafari program. -Policy guidelines regarding number and frequency [...] rehabilitation program, home exercise program, or functional rastafari program. -Policy guidelines regarding number and frequency [...] rehabilitation program, home exercise program, or functional rastafari program. -Policy guidelines regarding number and frequency [...] rehabilitation program, home exercise program, or functional rastafari program. -Policy guidelines regarding number and frequency [...] lumbar spine (ICD-10 - S32.000A) [place] [id number] 03/05/2024 Spinal enthesopathy, lumbar region (ICD-10 - [...] rehabilitation program, home exercise program, or functional rastafari program. -Policy guidelines regarding number and frequency [...] rehabilitation program, home exercise program, or functional rastafari program. -Policy guidelines regarding number and frequency [...] rehabilitation program, home exercise program, or functional rastafari program. -Policy guidelines regarding number and frequency [...] rehabilitation program, home exercise program, or functional rastafari program. -Policy guidelines regarding number and frequency [...] rehabilitation program, home exercise program, or functional rastafari program. -Policy guidelines regarding number and frequency [...] rehabilitation program, home exercise program, or functional rastafari program. -Policy guidelines regarding number and frequency [...] rehabilitation program, home exercise program, or functional rastafari program. -Policy guidelines regarding number and frequency [...] rehabilitation program, home exercise program, or functional rastafari program. -Policy guidelines regarding number and frequency [...] rehabilitation program, home exercise program, or functional rastafari program. -Policy guidelines regarding number and frequency [...] rehabilitation program, home exercise program, or functional rastafari program. -Policy guidelines regarding number and frequency [...] rehabilitation program, home exercise program, or functional rastafari program. -Policy guidelines regarding number and frequency [...] rehabilitation program, home exercise program, or functional rastafari program. -Policy guidelines regarding number and frequency [...] rehabilitation program, home exercise program, or functional rastafari program. -Policy guidelines regarding number and frequency [...] rehabilitation program, home exercise program, or functional rastafari program. -Policy guidelines regarding number and frequency [...] Insured Coverage Start Date Coverage End Date [facility] [employer] [address] [place] [address] [id number] Norma Pruett Self - patient is the [...]
== END 2024-09-03 08:48 | disposition home or self-care (01) ==
LOC: CHSIMG 08:50
PROVIDERS: PCP Obstetrics & Gynecology; Visit Provider Obstetrics & Gynecology
DX: N64.89 Other specified disorders of breast (principal)
CPT/HCPCS: 76641; 77061; 77065; G0279